=== PATIENT | female | born 1935 | race Caucasian/White ===

== ENCOUNTER 2017-04-05 15:20 | Inpatient (IN) | payer OTHER, MEDICARE ==
--- NOTE | 2017-04-05 17:02 | PDOREHIP ---
Admission [facility] - Admission - 3 Day Assessment Period Admission Date/Day 1: 04/05/17 Day 2: 04/06/17 Day 3: 04/07/17 - Active Diagnoses Comorbidities and Co-existing Conditions at Admission: 21959. None of the Above - Skin Conditions Unhealed Pressure Ulcer (1 or more/Stage 1 or >)-Admission: 0. No
[2017-04-05] MEDS ORDERED: HYDROCODONE/APAP 10/325 TAB PO PRN (17:30)
[2017-04-05] MEDS ORDERED: BISACODYL 10 MG SUPP PR PRN (17:35)
[2017-04-05] MEDS: HYDROCODONE/APAP 10/325 TAB PO PRN (19:08)
--- NOTE | 2017-04-05 19:18 | GHP ---
[f rep st] HISTORY AND PHYSICAL POST ADMISSION PHYSICIAN EVALUATION AND REHABILITATION TREATMENT PLAN DATE OF ADMISSION: 04/05/2017 DATE OF EVALUATION: 04/05/2017. TIME OF EVALUATION: 1645. REFERRING FACILITY: [facility]. REFERRING PHYSICIAN: Dr. Rossi IMPAIRMENT GROUP: 1.1. DATE OF ONSET: 04/03/2017. CONSULTING PHYSICIAN: She was seen in consultation by neurologist, Dr. Lacy. REHABILITATION DIAGNOSIS: Right cerebellar stroke. ETIOLOGIC DIAGNOSIS: Left body involvement (right brain). HISTORY OF PRESENT ILLNESS: This patient was admitted to [facility] on 04/02/2017 after a 5-day course of headache and dizziness. The headache was on her right side. She had a feeling of the room being motion, though not specifically spinning, and she would fall towards the right. She reported that she needed assistance from her son, even when using a walker for mobility. Evaluation in the hospital included a head CT which initially appeared to show a right cerebellar mass. A followup MRI showed a right cerebellar stroke. Echocardiogram was performed which did not show any embolic source. She had grade 2 diastolic dysfunction. She has had intolerance to HMG- CoA reductase inhibitors including myalgia and liver function abnormalities, and so she was begun on ezetimibe. Laboratory studies showed dyslipidemia with a total cholesterol of 285, and an LDL cholesterol of 204. She participated in rehabilitative therapies and was considered ready for transfer to inpatient rehabilitation. OTHER STUDIES AND LABS IN THE HOSPITAL: Basic metabolic panel was overall within normal limits. She had a minor increase in CO2 at 34 on labs drawn this morning and a minor decrease in sodium at 135. CBC on 04/02/2017 showed a normal white blood cell count, normal platelet count, and normal hemoglobin and hematocrit. Liver function tests on 04/02/2017 were within normal limits. Head CT showed age-appropriate atrophic and small-vessel ischemic change. CT angiogram showed no carotid or vertebral artery stenosis or dissection and no acute intracranial arterial thrombosis or significant stenosis. PRECAUTIONS: She is a fall risk. ACTIVE COMORBIDITIES: She has the tier 3 comorbidity of morbid obesity. PAST MEDICAL HISTORY: 1. Arthritis. 2. Cataracts. 3. Chest pain. 4. Chronic fatigue. 5. Chronic pain. 6. Diverticulitis. 7. Fibromyalgia. 8. Gastroesophageal reflux disease. 9. GI bleed. 10. Head injury. 11. Dyslipidemia. 12. Hypertension. 13. Hypothyroidism. 14. Irritable bowel syndrome. 15. Kidney stones. 16. Macular degeneration. 17. Carotid stenosis. 18. Peripheral arterial disease. 19. Palpitations. 20. Pneumonia. 21. Rheumatoid arthritis. 22. Seasonal allergies. 23. Sinusitis. 24. Sleep apnea. PAST SURGICAL HISTORY: She has had an appendectomy, bilateral oophorectomy, total abdominal hysterectomy, cataract extraction, cervical fusion, colectomy, laminectomy with disc removal, and tubal ligation. PRE-HOSPITAL MEDICATIONS: 1. Amoxicillin 875 mg b.i.d. 2. Cholecalciferol 3000 units daily. 3. Citalopram 40 mg q.h.s. 4. Clonazepam 1 mg q.h.s. 5. Gabapentin 600 mg q.h.s. 6. Hydralazine 50 mg q.h.s. 7. Hydrocodone/acetaminophen 10/325 q.4 hours p.r.n. 8. Culturelle probiotic daily. 9. Levothyroxine 75 mcg daily. 10. Lisinopril 40 mg daily. 11. Nebivolol 20 mg daily. 12. Oxycodone continuous release 20 mg every 12 hours. 13. Pantoprazole 40 mg daily. ADMIT MEDICATIONS: 1. Aspirin 81 mg p.o. daily. 2. Cholecalciferol 3000 units p.o. b.i.d. 3. Citalopram 40 mg p.o. q.h.s. 4. Clonazepam 1 mg p.o. q.h.s. 5. Ezetimibe 10 mg p.o. daily. 6. Gabapentin 600 mg p.o. q.h.s. 7. Culturelle probiotic daily. 8. Hydralazine 50 mg q.h.s. 9. Hydrocodone/acetaminophen 10/325 one p.o. q.4 hours p.r.n. 10. Levothyroxine 75 mcg p.o. daily. 11. Lisinopril 40 mg p.o. daily. 12. Meclizine 50 mg p.o. q.6 hours p.r.n. 13. Nebivolol 20 mg p.o. daily. 14. Lincoln-3 fatty acids one p.o. daily. 15. Oxycodone continuous release 20 mg q.12 hours. 16. Pantoprazole 40 mg p.o. daily. ALLERGIES: Listed to morphine, amlodipine, and simvastatin. Amlodipine caused swelling of the extremities. Simvastatin caused muscle pains. FAMILY HISTORY: Noncontributory. PSYCHOSOCIAL HISTORY: She is a . She moved to [place] from [place] to be nearer to her son in 2012. She is a nonsmoker and nondrinker. 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 REVIEW OF SYSTEMS: She reports a sensation of dizziness which is more like the room moving around her but not spinning, and she feels unstable when she stands up. She has some nausea, but she has not vomited. She notices some weakness on the right side of her body. She is using oxygen and reports that she uses oxygen daytime and nighttime at home as well. She has a headache, it is in the right frontal, temporal, and parietal regions. It is not pounding. She denies vision changes, numbness or tingling of the extremities, difficulty swallowing, cough, dyspnea, chest pain, palpitations, vomiting, constipation, diarrhea, dysuria, urinary frequency, skin rash or skin breakdown. She reports that she has pain in her knees and in her ankles. Otherwise, a 10-point review of systems is negative. PHYSICAL EXAMINATION: VITAL SIGNS: Vitals are not yet available in the chart. GENERAL: This is a well-nourished, well-developed, obese woman who appears her chronologic age, lying in bed, cooperative, and in no acute distress. HEENT : Extraocular movements are intact. Pupils are equal, round, and reactive to light and accommodation. Mucous membranes are moist. Dentition is in good condition. She has a crowded airway; Mallampati class 4. NECK: Supple. HEART : There is regular rate and rhythm with no murmurs, rubs, or gallops. LUNGS: Clear to auscultation bilaterally. ABDOMEN: Soft, nontender, nondistended with normoactive bowel sounds and no hepatosplenomegaly. EXTREMITIES: There is no cyanosis, clubbing, or edema. Radial and dorsalis pedis pulses are 2+ bilaterally. NEUROLOGIC: She is alert. She is disoriented to the date. She is reoriented by the examiner, and after several minutes of distraction, she maintains orientation. She follows multistep commands. Cranial nerves 2 through 12 are grossly intact. She has 4/5 strength in the right triceps. Otherwise, strength is 5/5 overall in all 4 extremities. She is able to arise to seated from supine with contact guard to minimal assist of 1. Sensation is intact to light touch. Deep tendon reflexes are 2+ bilaterally at the biceps, patellar, and Achilles tendons. Plantar reflexes upgoing on the left and downgoing on the right. Cerebellar: She has past-pointing on the right upper extremity, but not on the left. She is able to do the heel on the mcmullen maneuver equally on both sides. SKIN: There are no decubitus ulcers noted and no rash. CURRENT LEVEL OF FUNCTION: Per the pre-admission screen: Regarding diet, feeding, and swallowing, she was on a regular diet with thin liquids. Grooming was accomplished with assistance standing at the sink. For bathing, she needed assistance. For dressing, she needed assistance. For toileting, she needed assistance. Bed mobility was accomplished with standby assist. Transfers were done with contact guard assist using a front-wheeled walker. Balance required contact guard assist. Endurance was poor. She was able to ambulate 50 feet with a 4-wheeled walker and contact guard assist with a gait belt. Regarding cognition, she was noted to have decreased awareness of deficits, decreased problem solving, and able to follow one-step commands. She was noted to be oriented x4. IMPRESSION: The patient is an obese 81-year-old woman with multiple medical problems including stroke risk factors of dyslipidemia and hypertension who suffered a cerebrovascular accident on 04/02/2017 involving the right cerebellum and has had significant balance impairment as a result. Hospital evaluation did not uncover an embolic source for the stroke. She was not taking aspirin when she had the stroke. She was begun on aspirin. She has significant dyslipidemia with a history of intolerance to HMG-CoA reductase inhibitors and so was begun on ezetimibe. Her LDL was 195 and her goal LDL is less than 70. She is appropriate for inpatient rehabilitation with significant mobility deficits, reduced endurance, and possible cognitive involvement. She will have physical and occupational therapy to optimize her mobility and activities of daily living and speech and language pathology to assess regarding cognition. She will benefit from nursing care due to her fall risk, to maintain skin integrity, for bowel and bladder function, and for medication administration. She will benefit from the care of a physician regarding dyslipidemia, deep venous thrombosis risk, infectious risk, and multiple comorbidities including hypertension, hypothyroidism, chronic pain, and chronic hypoxemia. Her goal is to complete rehabilitation and then return home with her family. For a safe discharge, it is expected that she will achieve supervision to modified independence with mobility, activities of daily living, and cognition. She will need to be able to do medication management and there will be medication education as well as neurologic education for the patient and her family. She will have therapy with Physical Therapy, Occupational Therapy, and Speech and Language Pathology for 60 minutes per day for each discipline on 5-7 days of the week. Her expected duration of stay is 12-14 days. It is anticipated that upon discharge she will continue to benefit from home health services including speech and language pathology, occupational therapy, and physical therapy as well as a stroke support group. ASSESSMENT AND PLAN: 1. 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 Hospitalized 04/02/17 with symptoms beginning several days earlier. She has mild right-sided weakness and is showing some right-sided cerebellar signs. She will have physical and occupational therapy to optimize her mobility and activities of daily living. 2. Possible cognitive impairment. To be evaluated by Speech and Language Pathology. 3. Secondary prevention of cerebrovascular accident. Continue aspirin continue blood pressure control. Ezetimibe has been started for dyslipidemia. It is likely to reduce her LDL cholesterol by no more than 17%. She will likely need an HMG-CoA reductase inhibitor for optimal prevention. She has had intolerances to this class of medication; however, in conversation with her Cardiology [facility], it was noted that she was most recently prescribed rosuvastatin. This will be discussed with the patient further, and rosuvastatin may be started at a low dose with gradual titration. 4. Hypertension. Continue medications as ordered out of the hospital. 5. Chronic pain syndrome. Continue oxycodone continuous release as well as hydrocodone/acetaminophen combination. 6. Hypothyroidism. Continue levothyroxine. 7. Congestive heart failure, diastolic, grade 2. Continue nebivolol and lisinopril. Continue oxygen. 8. Likely obstructive sleep apnea. Listed in her med medical history, however , she has not been on specific treatment for this other than oxygen at night. Advise a sleep study after discharge from inpatient rehabilitation and continue oxygen. 9. Anxiety versus depression. Will continue citalopram and clonazepam. Consider discussion with the patient regarding effects of clonazepam on balance. 10. Vitamin D deficiency. Continue cholecalciferol. 11. Gastroesophageal reflux disorder. Continue pantoprazole, especially with the recent re-initiation of aspirin. 12. Resuscitation. Wishes were verified with the patient. She had a Do Not Resuscitate order while she was at [address] and she confirmed that this is her preference. FOLLOW UP: It is expected that upon discharge, she should follow up with primary care, with Cardiology Clinic at the [facility] in [place], and with [facility], Dr. Lacy, or his colleagues in their outpatient clinic. /[id number]/MODL MTDD
[2017-04-05] MEDS: GABAPENTIN 300 MG CAP PO SCH (20:18)
[2017-04-05] MEDS: clonazePAM 1 MG TAB PO SCH (20:19)
[2017-04-05] MEDS: CITALOPRAM 20 MG TAB PO SCH (20:19)
[2017-04-05] MEDS: CHOLECALCIFEROL VIT D3 1,000 UNITS TAB PO SCH (20:19)
[2017-04-06] MEDS: LEVOTHYROXINE 75 MCG TAB PO SCH (06:32)
[2017-04-06] MEDS: EZETIMIBE 10 MG TAB PO SCH (08:46)
[2017-04-06] MEDS: CHOLECALCIFEROL VIT D3 1,000 UNITS TAB PO SCH ×2 (08:46→20:22)
[2017-04-06] MEDS: HYDROCODONE/APAP 10/325 TAB PO PRN ×3 (08:47→14:24)
[2017-04-06] MEDS: OMEGA-3 FATTY ACIDS 1,000 MG CAP PO SCH (08:48)
[2017-04-06] MEDS: LISINOPRIL 40 MG TAB PO SCH (08:48)
[2017-04-06] MEDS: ASPIRIN 81 MG CHEWABLE TAB PO SCH (08:48)
[2017-04-06] MEDS: PANTOPRAZOLE SODIUM 40 MG TAB PO SCH (08:48)
[2017-04-06] MEDS: MECLIZINE HCL 25 MG TAB PO PRN (08:48)
[2017-04-06] MEDS: SENNOSIDES 1 TAB PO PRN (08:49)
[2017-04-06] MEDS ORDERED: Herbals/Supplements -Info Only PO SCH (09:00)
--- NOTE | 2017-04-06 09:47 | SOAPPROG ---
SOAP Progress Note Assessment/Plan: Assessment: * Right cerebellar cerebrovascular accident with balance impairment. Hospitalized 04/02/17 with symptoms beginning several days earlier. She has mild right-sided weakness and is showing some right-sided cerebellar signs. She will have physical and occupational therapy to optimize her mobility and activities of daily living. * Possible cognitive impairment. To be evaluated by Speech and Language Pathology. * Secondary prevention of cerebrovascular accident. Continue aspirin, continue blood pressure control. Ezetimibe has been started for dyslipidemia. It is likely to reduce her LDL cholesterol by no more than 17%. Initiate rosuvastatin 5 mg QD beginning 04/06/17. LFTs were normal in the hospital; recheck 04/09/17. * Hypertension. Inadequate control with lisinopril, nebivolol and hydralazine. Unclear why hydralazine is dosed only QHS; will not change for now. Initiate chlorthalidone 04/06/17 as it is 1st line for CVA prevention. Check renal fn . * Chronic pain syndrome. Continue oxycodone continuous release as well as hydrocodone/acetaminophen combination. Gabapentin is to help sleep and for fibromyalgia. 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 * Hypothyroidism. Continue levothyroxine. * Congestive heart failure, diastolic, grade 2. Continue nebivolol and lisinopril. Continue oxygen. * Likely obstructive sleep apnea. Listed in her med medical history, however, she has not been on specific treatment for this other than oxygen at night. Advise a sleep study after discharge from inpatient rehabilitation and continue oxygen. * Anxiety versus depression. Will continue citalopram and clonazepam. Consider discussion with the patient regarding effects of clonazepam on balance. * Vitamin D deficiency. Continue cholecalciferol. * Gastroesophageal reflux disorder. Continue pantoprazole, especially with the recent re-initiation of aspirin. FOLLOW UP: It is expected that upon discharge, she should follow up with primary care, with Cardiology Clinic at the [facility] in [place], and with [facility], Dr. Lacy, or his colleagues in their outpatient clinic. 04/06/17 10:08 Subjective: No complaints this morning. Slept well, good appetite for breakfast. Has bilateral lower extremity pain which was improved with her hydrocodone combination medication this morning as well as long-acting oxycodone. Again denies any urinary issues. Discussed prior use of statin medications. She reports that she was last prescribed rosuvastatin 3 times a week and that she thinks she may have had liver abnormalities with the rosuvastatin. Discussed blood pressure medications she reports that Dr. 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 She reports that she has never been on a diuretic. Objective: Vital Signs Temp Pulse Resp BP Pulse Ox 36.8 C 73 18 188/77 H 98 04/06/17 06:41 04/06/17 06:41 04/06/17 06:41 04/06/17 08:48 04/06/17 06:41 04/05/17 04/06/17 04/07/17 05:59 05:59 05:59 Intake Total 650 440 Output Total 400 Balance 250 440 Physical Exam - Physical Exam General Appearance: WD/WN, alert, no apparent distress, obese Respiratory: normal breath sounds, No crackles, No rhonchi, No wheezing Cardiac/Chest: regular rate, rhythm, bradycardia, No edema, No diastolic murmur , No systolic murmur Skin: normal color, warm/dry Neuro/Psych: alert, normal mood/affect ICD10 Worksheet Patient Problems: Problems Problem Status Onset Cerebellar stroke Acute
[2017-04-06] MEDS: ROSUVASTATIN CALCIUM 10 MG TAB PO SCH (11:32)
[2017-04-06] MEDS: CHLORTHALIDONE 25 MG TAB PO SCH (11:33)
[2017-04-06] MEDS: NEBIVOLOL HCL 5 MG TAB PO SCH (14:24)
[2017-04-06] MEDS ORDERED: ACETAMINOPHEN 650 MG/20.3 ML UDCUP PO PRN (14:49)
[2017-04-06] MEDS: ACET/CAFFEINE/BUTA FIORICET 1 EACH TAB PO PRN (16:45)
[2017-04-06] MEDS: ENOXAPARIN 40 MG/0.4 ML SYR SC SCH (16:46)
[2017-04-06] MEDS: oxyCODONE IR 5 MG TAB PO PRN ×2 (17:19→21:27)
[2017-04-06] MEDS: GABAPENTIN 300 MG CAP PO SCH (20:21)
[2017-04-06] MEDS: CITALOPRAM 20 MG TAB PO SCH (20:22)
[2017-04-06] MEDS: clonazePAM 1 MG TAB PO SCH (20:22)
[2017-04-07] MEDS: LEVOTHYROXINE 75 MCG TAB PO SCH (05:33)
[2017-04-07] MEDS: ASPIRIN 81 MG CHEWABLE TAB PO SCH (08:24)
[2017-04-07] MEDS: CHLORTHALIDONE 25 MG TAB PO SCH (08:24)
[2017-04-07] MEDS: EZETIMIBE 10 MG TAB PO SCH (08:27)
[2017-04-07] MEDS: CHOLECALCIFEROL VIT D3 1,000 UNITS TAB PO SCH ×2 (08:27→20:11)
[2017-04-07] MEDS: LISINOPRIL 40 MG TAB PO SCH (08:27)
[2017-04-07] MEDS: ENOXAPARIN 40 MG/0.4 ML SYR SC SCH (08:27)
[2017-04-07] MEDS: ROSUVASTATIN CALCIUM 10 MG TAB PO SCH (08:28)
[2017-04-07] MEDS: PANTOPRAZOLE SODIUM 40 MG TAB PO SCH (08:28)
[2017-04-07] MEDS: OMEGA-3 FATTY ACIDS 1,000 MG CAP PO SCH (08:28)
--- NOTE | 2017-04-07 11:54 | SOAPPROG ---
SOAP Progress Note Assessment/Plan: Assessment: * Right cerebellar cerebrovascular accident with balance impairment. Hospitalized 04/02/17 with symptoms beginning several days earlier. She has mild right-sided weakness and is showing some right-sided cerebellar signs. She will have physical and occupational therapy to optimize her mobility and activities of daily living. * Cognitive impairment. Issues with word retrieval, speed of processing, , new learning. Continue Speech and Language Pathology. * Secondary prevention of cerebrovascular accident. Continue aspirin, continue blood pressure control. Ezetimibe has been started for dyslipidemia. It is likely to reduce her LDL cholesterol by no more than 17%. Initiated rosuvastatin 5 mg QD beginning 04/06/17. LFTs were normal in the hospital; recheck 04/09/17. * Hypertension. Inadequate control with lisinopril, nebivolol and hydralazine. Unclear why hydralazine is dosed only QHS; will not change for now. Initiate chlorthalidone 04/06/17 as it is 1st line for CVA prevention. Check renal fn . * Chronic pain syndrome. Continue oxycodone continuous release. Separate acetaminophen from opiate starting 04/06/2017, with acetaminophen 650 mg q.4 hours p.r.n. and oxycodone 5-10 mg q.3 hours p.r.n. added p.r.n. Fioricet for headache. Pain improved last night and this morning 04/07/2017. Gabapentin is to help sleep and for fibromyalgia. 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 * Hypothyroidism. Continue levothyroxine. * Congestive heart failure, diastolic, grade 2. Continue nebivolol and lisinopril. Continue oxygen. * Likely obstructive sleep apnea. Listed in her med medical history, however, she has not been on specific treatment for this other than oxygen at night. Advise a sleep study after discharge from inpatient rehabilitation and continue oxygen. * Anxiety versus depression. Will continue citalopram and clonazepam. Consider discussion with the patient regarding effects of clonazepam on balance. * Vitamin D deficiency. Continue cholecalciferol. * Gastroesophageal reflux disorder. Continue pantoprazole, especially with the recent re-initiation of aspirin. FOLLOW UP: After discharge, she should follow up with primary care, with Cardiology Clinic at the [facility] in [place], and with [facility], Dr. Lacy, or his colleagues in their outpatient clinic. 04/07/17 11:50 Subjective: No complaints. Headache is improved. Slept well, was up x1 overnight to urinate. No fevers, chills, cough, dyspnea, dysuria. Objective: Vital Signs Temp Pulse Resp BP Pulse Ox 37.4 C 50 L 18 156/65 H 96 04/07/17 08:20 04/07/17 08:20 04/07/17 08:20 04/07/17 08:27 04/07/17 08:20 04/06/17 04/07/17 04/08/17 05:59 05:59 05:59 Intake Total 650 1460 350 Output Total 400 1050 Balance 250 410 350 Physical Exam - Physical Exam General Appearance: WD/WN, alert, no apparent distress, obese Respiratory: normal breath sounds, No crackles, No rhonchi, No wheezing Cardiac/Chest: regular rate, rhythm, edema (trace B LE) Skin: normal color, warm/dry Neuro/Psych: alert, normal mood/affect, oriented x 3, abnormal gait (Ambulates FWW, CGA per PT. Ataxia RLE with LOB.) ICD10 Worksheet Patient Problems: Problems Problem Status Onset Cerebellar stroke Acute
[2017-04-07] MEDS: oxyCODONE IR 5 MG TAB PO PRN ×2 (13:15→20:10)
[2017-04-07] MEDS: NEBIVOLOL HCL 5 MG TAB PO SCH (13:16)
[2017-04-07] MEDS: POLYETHYLENE GLYCOL 3350 17 GM PKT PO PRN (17:14)
[2017-04-07] MEDS: SENNOSIDES 1 TAB PO PRN (17:14)
[2017-04-07] MEDS: ACETAMINOPHEN 325 MG TAB PO PRN (20:10)
[2017-04-07] MEDS: GABAPENTIN 300 MG CAP PO SCH (20:11)
[2017-04-07] MEDS: CITALOPRAM 20 MG TAB PO SCH (20:12)
[2017-04-07] MEDS: clonazePAM 1 MG TAB PO SCH (20:12)
[2017-04-08] MEDS: oxyCODONE IR 5 MG TAB PO PRN ×5 (04:38→22:37)
[2017-04-08] MEDS: LEVOTHYROXINE 75 MCG TAB PO SCH (05:34)
[2017-04-08] MEDS: ROSUVASTATIN CALCIUM 10 MG TAB PO SCH (08:26)
[2017-04-08] MEDS: CHLORTHALIDONE 25 MG TAB PO SCH (08:28)
[2017-04-08] MEDS: LISINOPRIL 40 MG TAB PO SCH (08:31)
[2017-04-08] MEDS: PANTOPRAZOLE SODIUM 40 MG TAB PO SCH (08:32)
[2017-04-08] MEDS: ASPIRIN 81 MG CHEWABLE TAB PO SCH (08:32)
[2017-04-08] MEDS: EZETIMIBE 10 MG TAB PO SCH (08:32)
[2017-04-08] MEDS: OMEGA-3 FATTY ACIDS 1,000 MG CAP PO SCH (08:32)
[2017-04-08] MEDS: CHOLECALCIFEROL VIT D3 1,000 UNITS TAB PO SCH ×2 (08:32→20:24)
[2017-04-08] MEDS: POLYETHYLENE GLYCOL 3350 17 GM PKT PO PRN ×2 (08:36→20:41)
[2017-04-08] MEDS: SENNOSIDES 1 TAB PO PRN (08:37)
[2017-04-08] MEDS: ENOXAPARIN 40 MG/0.4 ML SYR SC SCH (08:40)
--- NOTE | 2017-04-08 11:05 | SOAPPROG ---
SOAP Progress Note Assessment/Plan: Assessment: * Right cerebellar cerebrovascular accident with balance impairment. Hospitalized 04/02/17 with symptoms beginning several days earlier. She has mild right-sided weakness and is showing some right-sided cerebellar signs. She has ambulated up to 250 feet. She will have physical and occupational therapy to optimize her mobility and activities of daily living. * Cognitive impairment. Issues with word retrieval, speed of processing, , new learning. Continue Speech and Language Pathology. * Secondary prevention of cerebrovascular accident. Continue aspirin, continue blood pressure control. Ezetimibe has been started for dyslipidemia. It is likely to reduce her LDL cholesterol by no more than 17%. Initiated rosuvastatin 5 mg QD beginning 04/06/17. LFTs were normal in the hospital; recheck 04/09/17. * Hypertension. Inadequate control with lisinopril, nebivolol and hydralazine. Unclear why hydralazine is dosed only QHS; will not change for now. Initiate chlorthalidone 04/06/17 as it is 1st line for CVA prevention. Check renal fn . Check orthostatic blood pressure and pulse * Chronic pain syndrome. Continue oxycodone continuous release. Separate acetaminophen from opiate starting 04/06/2017, with acetaminophen 650 mg q.4 hours p.r.n. and oxycodone 5-10 mg q.3 hours p.r.n. added p.r.n. Fioricet for headache. Pain improved last night and this morning 04/07/2017. Gabapentin is to help sleep and for fibromyalgia. 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 * Hypothyroidism. Continue levothyroxine. * Congestive heart failure, diastolic, grade 2. Continue nebivolol and lisinopril. Continue oxygen. Has reduced oxygen requirement but lower extremity edema is noted. Initiate daily weights starting 04/08/2017. * Likely obstructive sleep apnea. Listed in her med medical history, however, she has not been on specific treatment for this other than oxygen at night. Advise a sleep study after discharge from inpatient rehabilitation and continue oxygen. * Anxiety versus depression. Will continue citalopram and clonazepam. Consider discussion with the patient regarding effects of clonazepam on balance. * Vitamin D deficiency. Continue cholecalciferol. * Gastroesophageal reflux disorder. Continue pantoprazole, especially with the recent re-initiation of aspirin. FOLLOW UP: After discharge, she should follow up with primary care, with Cardiology Clinic at the [facility] in [place], and with [facility], Dr. Lacy, or his colleagues in their outpatient clinic. 04/08/17 11:01 Subjective: No complaints this morning. She notes that she is on 2 L of oxygen were as at home she was usually on 3 L. slept well last night on till about 4 in the morning, when she awoke due to leg pain. She thinks that the sequential compression devices may have been causing pain. They were removed she was treated oxycodone and went back to sleep. No fevers, chills, cough, dyspnea, headache. Objective: Vital Signs Temp Pulse Resp BP Pulse Ox 36.4 C 66 18 155/86 H 96 04/08/17 05:41 04/08/17 05:41 04/08/17 05:41 04/08/17 08:31 04/08/17 05:41 04/07/17 04/08/17 04/09/17 05:59 05:59 05:59 Intake Total 1460 1440 400 Output Total 1050 1125 Balance 410 315 400 Physical Exam - Physical Exam General Appearance: WD/WN, alert, no apparent distress, obese Respiratory: normal breath sounds, No crackles, No rhonchi, No wheezing Cardiac/Chest: regular rate, rhythm, edema (1+ B LE), No JVD Skin: normal color, warm/dry Neuro/Psych: alert, normal mood/affect, oriented x 3 ICD10 Worksheet Patient Problems: Problems Problem Status Onset Cerebellar stroke Acute
[2017-04-08] MEDS: NEBIVOLOL HCL 5 MG TAB PO SCH (15:02)
[2017-04-08] MEDS ORDERED: SENNOSIDES 1 TAB PO PRN (15:17)
[2017-04-08] MEDS ORDERED: SENNOSIDES 1 TAB PO SCH (15:45)
[2017-04-08] MEDS: clonazePAM 1 MG TAB PO SCH (20:24)
[2017-04-08] MEDS: SENNOSIDES 1 TAB PO SCH (20:24)
[2017-04-08] MEDS: GABAPENTIN 300 MG CAP PO SCH (20:24)
[2017-04-08] MEDS: CITALOPRAM 20 MG TAB PO SCH (20:24)
[2017-04-08] MEDS: ACETAMINOPHEN 325 MG TAB PO PRN (22:03)
[2017-04-09] MEDS: LEVOTHYROXINE 75 MCG TAB PO SCH (05:35)
[2017-04-09] MEDS: ENOXAPARIN 40 MG/0.4 ML SYR SC SCH (07:57)
[2017-04-09] MEDS: ASPIRIN 81 MG CHEWABLE TAB PO SCH (08:07)
[2017-04-09] MEDS: ROSUVASTATIN CALCIUM 10 MG TAB PO SCH (08:07)
[2017-04-09] MEDS: SENNOSIDES 1 TAB PO SCH (08:07)
[2017-04-09] MEDS: LISINOPRIL 40 MG TAB PO SCH (08:08)
[2017-04-09] MEDS: PANTOPRAZOLE SODIUM 40 MG TAB PO SCH (08:08)
[2017-04-09] MEDS: OMEGA-3 FATTY ACIDS 1,000 MG CAP PO SCH (08:09)
[2017-04-09] MEDS: CHLORTHALIDONE 25 MG TAB PO SCH (08:09)
[2017-04-09] MEDS: CHOLECALCIFEROL VIT D3 1,000 UNITS TAB PO SCH ×2 (08:10→20:05)
[2017-04-09] MEDS: EZETIMIBE 10 MG TAB PO SCH (08:10)
[2017-04-09] MEDS: POLYETHYLENE GLYCOL 3350 17 GM PKT PO PRN (08:10)
[2017-04-09] MEDS ORDERED: SENNOSIDES 1 TAB PO PRN (09:40)
[2017-04-09 09:57] LABS: SPECIMEN HEMOLYSIS 155
--- NOTE | 2017-04-09 10:25 | SOAPPROG ---
SOAP Progress Note Assessment/Plan: Assessment: 81 yo F Hospitalized 04/02/17 for R cerebellar CVA with symptoms beginning several days earlier. She has mild right-sided weakness and is showing some right-sided cerebellar signs. 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 Initial FIM 85. Walked 150 feet with front wheeled walker and standby assist/contact guard assist. Climbed and descended 3 stairs with 1 rail. Require setup and supervision for upper body and lower body dressing. She bathed seated with minimal assistance she was noted to have slowed visual processing. Continue physical and occupational therapy to optimize her mobility and activities of daily living. * Cognitive impairment. Issues with word retrieval, speed of processing,, new learning. Continue Speech and Language Pathology. * Secondary prevention of cerebrovascular accident. Continue aspirin, continue blood pressure control. Ezetimibe has been started for dyslipidemia. It is likely to reduce her LDL cholesterol by no more than 17%. Initiated rosuvastatin 5 mg QD beginning 04/06/17. LFTs were normal in the hospital; mild elevation 04/09/17; recheck 04/11/17. * Hypertension. Inadequate control with lisinopril, nebivolol and hydralazine. Initiated chlorthalidone 04/06/17 as it is 1st line for CVA prevention; d/c starting 04/10/17 due to hyponatremia with Na 130 on labs 04/09/17. Was mildly orthostatic 04/08/17; hypotensive after eating this morning 04/09/17. Reduce nebivolol to 10 mg and hold for BP < 130/70 or HR < 50. Will change hydralazine to 50 mg TID starting 04/10/17. Recheck BMP 04/11/17. * Chronic pain syndrome. Continue oxycodone continuous release. Separate acetaminophen from opiate starting 04/06/2017, with acetaminophen 650 mg q.4 hours p.r.n. and oxycodone 5-10 mg q.3 hours p.r.n. added p.r.n. Fioricet for headache. Pain improved last night and this morning 04/07/2017. Gabapentin is to help sleep and for fibromyalgia. 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 * Constipation. She reports better results at home with bisacodyl oral. We will change senna to p.r.n. and initiate physical oral 5 mg q.day. She discussed history of a bowel obstruction and concern that this may be developing now. Encouraged use of enema or suppository today 04/09/17; she reports that she will accept a suppository today. Chronic/stable conditions: * Hypothyroidism. Continue levothyroxine. * Congestive heart failure, diastolic, grade 2. Continue nebivolol and lisinopril. Continue oxygen. Has reduced oxygen requirement but lower extremity edema is noted. Initiate daily weights starting 04/09/2017. * Likely obstructive sleep apnea. Listed in her med medical history, however, she has not been on specific treatment for this other than oxygen at night. Advise a sleep study after discharge from inpatient rehabilitation and continue oxygen. * Anxiety versus depression. Will continue citalopram and clonazepam. Consider discussion with the patient regarding effects of clonazepam on balance. * Vitamin D deficiency. Continue cholecalciferol. * Gastroesophageal reflux disorder. Continue pantoprazole, especially with the recent re-initiation of aspirin. Attendant staffing, 15 minutes. Discussed with case management, nursing, PT, OT , [employer]. Lives in basement level room in son's home with stair glide however has several stairs to enter the house. 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 Tentative discharge goal of 04/19/2017 to son' s home. FOLLOW UP: After discharge, she should follow up with primary care, with [facility]iology Clinic at the [facility] in [place], and with [facility], Dr. Lacy, or his colleagues in their outpatient clinic. 04/09/17 12:19 Subjective: [place] lightheaded this morning during breakfast. Blood pressure was checked and was 104/44. She is currently in bed and feeling better. She denies fevers, chills, cough, dyspnea. Pain is adequately controlled. Objective: Vital Signs Temp Pulse Resp BP Pulse Ox 36.8 C 54 L 16 104/44 L 92 04/09/17 06:09 04/09/17 08:43 04/09/17 08:43 04/09/17 08:43 04/09/17 08:43 Laboratory Results 04/09/17 06:00 04/08/17 04/09/17 04/10/17 05:59 05:59 05:59 Intake Total 1440 1240 Output Total 1125 Balance 315 1240 - Time Spent With Patient Time Spent With Patient: Greater than 35 minutes 4 times a day, including more than 50% of time in coordination of care during staffing meeting, and counseling patient. Physical Exam - Physical Exam General Appearance: WD/WN, alert, no apparent distress, obese Respiratory: normal breath sounds, No crackles, No rhonchi, No wheezing Cardiac/Chest: regular rate, rhythm, edema (1+ B LE), systolic murmur (1/6 holosystolic LSB) Skin: normal color, warm/dry Neuro/Psych: alert, normal mood/affect, oriented x 3 ICD10 Worksheet Patient Problems: Problems Problem Status Onset Cerebellar stroke Acute
[2017-04-09 12:18] LABS: ALANINE AMINOTRANSFERASE 61 IU/L (9-52); ALBUMIN 4.2 g/dL (3.5-5.0); ALKALINE PHOSPHATASE 68 IU/L (38-126); ANION GAP 11 mEq/L (8-16); ASPARTATE AMINOTRANSFERASE 71 IU/L (14-46); BILIRUBIN,TOTAL 0.6 mg/dL (0.1-1.4); CALCIUM 9.6 mg/dL (8.5-10.4); CARBON DIOXIDE 29 mEq/l (22-31); CHLORIDE 90 mEq/L (97-110); CREATININE 0.9 mg/dL (0.6-1.0); GLOMERULAR FILTRATION RATE > 60; GLUCOSE 109 mg/dL (70-100); POTASSIUM 4.3 mEq/L (3.5-5.2); SODIUM 130 mEq/L (134-144); TOTAL PROTEIN 7.1 g/dL (6.3-8.2)
[2017-04-09] MEDS: oxyCODONE IR 5 MG TAB PO PRN ×2 (14:17→19:53)
[2017-04-09] MEDS: NEBIVOLOL HCL 5 MG TAB PO SCH (14:18)
[2017-04-09] MEDS: clonazePAM 1 MG TAB PO SCH (20:05)
[2017-04-09] MEDS: CITALOPRAM 20 MG TAB PO SCH (20:05)
[2017-04-09] MEDS: GABAPENTIN 300 MG CAP PO SCH (20:05)
[2017-04-10] MEDS: LEVOTHYROXINE 75 MCG TAB PO SCH (05:42)
[2017-04-10] MEDS: oxyCODONE IR 5 MG TAB PO PRN ×4 (06:44→20:57)
--- NOTE | 2017-04-10 08:21 | SOAPPROG ---
SOAP Progress Note Assessment/Plan: 81 yo F Hospitalized 04/02/17 for R cerebellar CVA with symptoms beginning several days earlier. She has mild right-sided weakness and is showing some right-sided cerebellar signs. Today's update-changing bowel regimen to match patient's home regimen, with some additional assistance for constipation the hospital. Slightly low sodium at 1:30 a.m. yesterday, slightly hypertensive today at 161/71 with a pulse of 55. Fluid status seems normal. Rechecking sodium in the morning. Slightly elevated liver function tests on the last set of labs on 04/09, rechecking on . Weight was increased from her previous recording, however she notes that she was fully dressed during the 2nd one. This is the 1st time meeting the patient, all medical issues are new to this provider. Plan to discuss any further changes to her blood pressure medications with Dr. Stephenson. 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 Initial FIM 85. Walked 150 feet with front wheeled walker and standby assist/contact guard assist. Climbed and descended 3 stairs with 1 rail. Require setup and supervision for upper body and lower body dressing. She bathed seated with minimal assistance she was noted to have slowed visual processing. Continue physical and occupational therapy to optimize her mobility and activities of daily living. * Cognitive impairment. Issues with word retrieval, speed of processing, new learning. Continue Speech and Language Pathology. * Secondary prevention of cerebrovascular accident. Continue aspirin, continue blood pressure control. Ezetimibe has been started for dyslipidemia. It is likely to reduce her LDL cholesterol by no more than 17%. Initiated rosuvastatin 5 mg QD beginning 04/06/17. LFTs were normal in the hospital; mild elevation 04/09/17; recheck 04/11/17. * Hypertension. Inadequate control with lisinopril, nebivolol and hydralazine. Initiated chlorthalidone 04/06/17 as it is 1st line for CVA prevention; d/c starting 04/10/17 due to hyponatremia with Na 130 on labs 04/09/17. Was mildly orthostatic 04/08/17; hypotensive after eating this morning 04/09/17. Reduced nebivolol to 10 mg and hold for BP < 130/70 or HR < 50. Changed to hydralazine to 50 mg TID starting 04/10/17. Recheck BMP 04/11/17. * Chronic pain syndrome. Continue oxycodone continuous release. Separate acetaminophen from opiate starting 04/06/2017, with acetaminophen 650 mg q.4 hours p.r.n. and oxycodone 5-10 mg q.3 hours p.r.n. added p.r.n. Fioricet for headache. Gabapentin is to help sleep and for fibromyalgia. 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 * Constipation. She reports better results at home with bisacodyl oral. Changed senna to p.r.n. and initiate bisacodyl oral 5 mg q.day. She is requesting dulcolax p.r.n. Chronic/stable conditions: * Hypothyroidism. Continue levothyroxine. * Congestive heart failure, diastolic, grade 2. Continue nebivolol and lisinopril. Continue oxygen. Has reduced oxygen requirement but lower extremity edema is noted. Initiate daily weights starting 04/09/2017. * Likely obstructive sleep apnea. Listed in her med medical history, however, she has not been on specific treatment for this other than oxygen at night. Advise a sleep study after discharge from inpatient rehabilitation and continue oxygen. * Anxiety versus depression. Will continue citalopram and clonazepam. Consider discussion with the patient regarding effects of clonazepam on balance. * Vitamin D deficiency. Continue cholecalciferol. * Gastroesophageal reflux disorder. Continue pantoprazole, especially with the recent re-initiation of aspirin. Lives in basement level room in son's home with stair glide however has several stairs to enter the house. 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 Tentative discharge goal of 04/19/2017 to son's home. FOLLOW UP: After discharge, she should follow up with primary care, with [facility]iology Clinic at the [facility] in [place], and with [facility], Dr. Lacy, or his colleagues in their outpatient clinic. 04/10/17 08:16 04/10/17 08:23 Subjective: Chief complaint: Hypertension, loose stool Today patient is slightly hypertensive, 161/71, pulse of 55. She had a sodium of 130 at the last lab drawn on 04/09. She denies any new headache, shortness of breath, chest pain, or any new numbness tingling or weakness. She notes that she would take p.r.n. Dulcolax at home, requesting that medication here. Participating well in therapies, she has no other new concerns today. She also denies that she was asked to check her weight at home. Notes that at her last weight in on rehab, she was fully dressed with her shoes on. Objective: Vital Signs Temp Pulse Resp BP Pulse Ox 36.3 C 55 L 16 161/71 H 97 04/10/17 05:53 04/10/17 05:53 04/10/17 05:53 04/10/17 05:53 04/10/17 05:53 Laboratory Results 04/09/17 11:04 04/09/17 04/10/17 04/11/17 05:59 05:59 05:59 Intake Total 1240 540 Output Total 600 Balance 1240 -60 Physical Exam - Physical Exam General Appearance: WD/WN, alert, no apparent distress EENT: No scleral icterus (R), No scleral icterus (L) Respiratory: chest non-tender, lungs clear, normal breath sounds, No respiratory distress, No accessory muscle use, No rales, No rhonchi, No wheezing , No pleural rub, No retractions, No pain on movement Cardiac/Chest: normal peripheral pulses, regular rate, rhythm, No edema, No JVD , No diastolic murmur, No systolic murmur, No extra beats, No irregularly irregular Abdomen: non-tender, soft Skin: normal color, warm/dry, No cyanosis, No diaphoresis Neuro/Psych: alert, normal mood/affect, No abnormal cerebellar tests (Abnormal [id number] and rapid alternating movements on the right) ICD10 Worksheet Patient Problems: Problems Problem Status Onset Cerebellar stroke Acute
[2017-04-10] MEDS: ACET/CAFFEINE/BUTA FIORICET 1 EACH TAB PO PRN (08:50)
[2017-04-10] MEDS: ACETAMINOPHEN 325 MG TAB PO PRN ×2 (08:50→13:48)
[2017-04-10] MEDS: ASPIRIN 81 MG CHEWABLE TAB PO SCH (08:51)
[2017-04-10] MEDS: EZETIMIBE 10 MG TAB PO SCH (08:52)
[2017-04-10] MEDS: ENOXAPARIN 40 MG/0.4 ML SYR SC SCH (08:52)
[2017-04-10] MEDS: LISINOPRIL 40 MG TAB PO SCH (08:52)
[2017-04-10] MEDS: CHOLECALCIFEROL VIT D3 1,000 UNITS TAB PO SCH ×2 (08:52→20:57)
[2017-04-10] MEDS: PANTOPRAZOLE SODIUM 40 MG TAB PO SCH (08:53)
[2017-04-10] MEDS: OMEGA-3 FATTY ACIDS 1,000 MG CAP PO SCH (08:53)
[2017-04-10] MEDS: ROSUVASTATIN CALCIUM 10 MG TAB PO SCH (08:53)
[2017-04-10] MEDS: MECLIZINE HCL 25 MG TAB PO PRN (10:41)
[2017-04-10] MEDS: NEBIVOLOL HCL 5 MG TAB PO SCH (13:52)
[2017-04-10] MEDS: clonazePAM 1 MG TAB PO SCH (20:57)
[2017-04-10] MEDS: GABAPENTIN 300 MG CAP PO SCH (20:57)
[2017-04-10] MEDS: CITALOPRAM 20 MG TAB PO SCH (20:57)
[2017-04-11] MEDS: LEVOTHYROXINE 75 MCG TAB PO SCH (05:01)
[2017-04-11] MEDS: oxyCODONE IR 5 MG TAB PO PRN ×3 (07:46→20:13)
[2017-04-11] MEDS: ACETAMINOPHEN 325 MG TAB PO PRN ×2 (07:47→14:46)
[2017-04-11] MEDS: ENOXAPARIN 40 MG/0.4 ML SYR SC SCH (08:37)
[2017-04-11] MEDS: ASPIRIN 81 MG CHEWABLE TAB PO SCH (08:37)
[2017-04-11] MEDS: EZETIMIBE 10 MG TAB PO SCH (08:37)
[2017-04-11] MEDS: LISINOPRIL 40 MG TAB PO SCH (08:37)
[2017-04-11] MEDS: CHOLECALCIFEROL VIT D3 1,000 UNITS TAB PO SCH ×2 (08:37→20:14)
[2017-04-11] MEDS: OMEGA-3 FATTY ACIDS 1,000 MG CAP PO SCH (08:38)
[2017-04-11] MEDS: PANTOPRAZOLE SODIUM 40 MG TAB PO SCH (08:38)
[2017-04-11] MEDS: ROSUVASTATIN CALCIUM 10 MG TAB PO SCH (08:38)
[2017-04-11] MEDS: BISACODYL 5 MG EC TAB PO PRN (08:39)
[2017-04-11 09:37] LABS: ALANINE AMINOTRANSFERASE 56 IU/L (9-52); ALBUMIN 3.6 g/dL (3.5-5.0); ALKALINE PHOSPHATASE 67 IU/L (38-126); ANION GAP 10 mEq/L (8-16); ASPARTATE AMINOTRANSFERASE 56 IU/L (14-46); BILIRUBIN,TOTAL 0.6 mg/dL (0.1-1.4); CALCIUM 9.2 mg/dL (8.5-10.4); CARBON DIOXIDE 29 mEq/l (22-31); CHLORIDE 88 mEq/L (97-110); CREATININE 0.9 mg/dL (0.6-1.0); GLOMERULAR FILTRATION RATE > 60; GLUCOSE 80 mg/dL (70-100); POTASSIUM 4.3 mEq/L (3.5-5.2); SODIUM 127 mEq/L (134-144); TOTAL PROTEIN 6.2 g/dL (6.3-8.2)
[2017-04-11] MEDS: MECLIZINE HCL 25 MG TAB PO PRN (09:40)
--- NOTE | 2017-04-11 10:49 | SOAPPROG ---
SOAP Progress Note Assessment/Plan: Assessment: 81 yo F hospitalized 04/02/17 for R cerebellar CVA with symptoms beginning several days earlier. She has mild right-sided weakness and is showing some right-sided cerebellar signs. 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 Initial FIM 85. Walked 150 feet with front wheeled walker and standby assist/contact guard assist. Climbed and descended 3 stairs with 1 rail. Require setup and supervision for upper body and lower body dressing. She bathed seated with minimal assistance she was noted to have slowed visual processing. Continue physical and occupational therapy to optimize her mobility and activities of daily living. * Cognitive impairment. Issues with word retrieval, speed of processing,, new learning. Continue Speech and Language Pathology. * Diplopia. With R eye esotropia, consistent with cerebellar lesion, but concerning that i t is new symptom. * Secondary prevention of cerebrovascular accident. Continue aspirin, continue blood pressure control. Ezetimibe has been started for dyslipidemia. It is likely to reduce her LDL cholesterol by no more than 17%. Initiated rosuvastatin 5 mg QD beginning 04/06/17. LFTs were normal in the hospital; mild elevation 04/09/17; mild elevation improved 04/11/17. * Hyponatremia, Likely due to chlorthalidone, last dose 04/09/17. Slightly worse this morning 04/11/17 with Na 127. Check U osm & Na, and serum osm and uric acid. Initiate fluid restriction pending results Recheck in AM 04/12/17. * Hypertension. Also orthostatic hypotension cristin after meals. Changed dosing of hydralazine to avoid mealtime: 0600, 1400, 2200, starting 04/11/17. Continue lisinopril 40 mg QD, nebivolol 10 mg Q 1400, hydralazine. Had hyponatremia with chlorthalidone, h/o edema with amlodipine. * Chronic pain syndrome. Continue oxycodone continuous release. Separate acetaminophen from opiate starting 04/06/2017, with acetaminophen 650 mg q.4 hours p.r.n. and oxycodone 5-10 mg q.3 hours p.r.n. added p.r.n. Fioricet for headache. Pain improved last night and this morning 04/07/2017. Gabapentin is to help sleep and for fibromyalgia. 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 * Constipation. She reports better results at home with bisacodyl oral. We will change senna to p.r.n. and initiate physical oral 5 mg q.day. She discussed history of a bowel obstruction and concern that this may be developing now. Encouraged use of enema or suppository today 04/09/17; she reports that she will accept a suppository today. Chronic/stable conditions: * Hypothyroidism. Continue levothyroxine. * Congestive heart failure, diastolic, grade 2. Continue nebivolol and lisinopril. Continue oxygen. Has reduced oxygen requirement but lower extremity edema is noted. Initiate daily weights starting 04/09/2017. * Likely obstructive sleep apnea. Listed in her med medical history, however, she has not been on specific treatment for this other than oxygen at night. Advise a sleep study after discharge from inpatient rehabilitation and continue oxygen. * Anxiety versus depression. Will continue citalopram and clonazepam. Consider discussion with the patient regarding effects of clonazepam on balance. * Vitamin D deficiency. Continue cholecalciferol. * Gastroesophageal reflux disorder. Continue pantoprazole, especially with the recent re-initiation of aspirin. Lives in basement level room in son's home with stair glide however has several stairs to enter the house. 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 Tentative discharge goal of 04/19/2017 to son's home. FOLLOW UP: After discharge, she should follow up with primary care, with [facility]iology Clinic at the [facility] in [place], and with [facility], Dr. Lacy, or his colleagues in their outpatient clinic. 04/11/17 10:52 Subjective: C/O feeling dizzy this morning, but not lightheaded. Says she's seeing double, and has sensation of movement. Dizziness improved with meclizine. Objective: Vital Signs Temp Pulse Resp BP Pulse Ox 36.6 C 54 L 15 143/67 H 94 04/11/17 06:33 04/11/17 08:00 04/11/17 06:33 04/11/17 08:37 04/11/17 06:33 Laboratory Results 04/11/17 08:40 04/10/17 04/11/17 04/12/17 05:59 05:59 05:59 Intake Total 540 900 120 Output Total 600 1200 Balance -60 -300 120 Physical Exam - Physical Exam General Appearance: WD/WN, alert, no apparent distress Respiratory: normal breath sounds, No crackles, No rhonchi, No wheezing Cardiac/Chest: regular rate, rhythm, edema (trace B LE pretibial) Skin: normal color, warm/dry Neuro/Psych: alert, normal mood/affect, oriented x 3, 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
[2017-04-11] MEDS: NEBIVOLOL HCL 5 MG TAB PO SCH (14:47)
[2017-04-11 15:26] LABS: URIC ACID 4.9 mg/dL (2.5-6.8)
[2017-04-11] MEDS: GABAPENTIN 300 MG CAP PO SCH (20:12)
[2017-04-11] MEDS: clonazePAM 1 MG TAB PO SCH (20:13)
[2017-04-11] MEDS: CITALOPRAM 20 MG TAB PO SCH (20:15)
[2017-04-12] MEDS: oxyCODONE IR 5 MG TAB PO PRN ×2 (04:51→19:20)
[2017-04-12] MEDS: LEVOTHYROXINE 75 MCG TAB PO SCH (06:36)
[2017-04-12 08:12] LABS: ANION GAP 8 mEq/L (8-16); CALCIUM 9.1 mg/dL (8.5-10.4); CARBON DIOXIDE 31 mEq/l (22-31); CHLORIDE 89 mEq/L (97-110); CREATININE 0.8 mg/dL (0.6-1.0); GLOMERULAR FILTRATION RATE > 60; GLUCOSE 81 mg/dL (70-100); POTASSIUM 4.3 mEq/L (3.5-5.2); SODIUM 128 mEq/L (134-144)
[2017-04-12] MEDS: OMEGA-3 FATTY ACIDS 1,000 MG CAP PO SCH (08:49)
[2017-04-12] MEDS: PANTOPRAZOLE SODIUM 40 MG TAB PO SCH (08:49)
[2017-04-12] MEDS: CHOLECALCIFEROL VIT D3 1,000 UNITS TAB PO SCH ×2 (08:52→20:00)
[2017-04-12] MEDS: EZETIMIBE 10 MG TAB PO SCH (08:52)
[2017-04-12] MEDS: ROSUVASTATIN CALCIUM 10 MG TAB PO SCH (08:53)
[2017-04-12] MEDS: ASPIRIN 81 MG CHEWABLE TAB PO SCH (08:54)
[2017-04-12] MEDS: ENOXAPARIN 40 MG/0.4 ML SYR SC SCH (08:57)
[2017-04-12] MEDS: LISINOPRIL 40 MG TAB PO SCH (11:04)
--- NOTE | 2017-04-12 13:51 | SOAPPROG ---
SOAP Progress Note Assessment/Plan: Assessment: 81 yo F hospitalized 04/02/17 for R cerebellar CVA with symptoms beginning several days earlier. She has mild right-sided weakness and is showing some right-sided cerebellar signs. 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 Initial FIM 85. Walked 150 feet with front wheeled walker and standby assist/contact guard assist. Climbed and descended 3 stairs with 1 rail. Require setup and supervision for upper body and lower body dressing. She bathed seated with minimal assistance she was noted to have slowed visual processing. Continue physical and occupational therapy to optimize her mobility and activities of daily living. * Cognitive impairment. Issues with word retrieval, speed of processing,, new learning. Continue Speech and Language Pathology. * Diplopia. With R eye exotropia, consistent with cerebellar lesion, but concerning that it is new symptom. D/W Neurologist Dr. Juarez: On his recommendation ordered head CTA to evaluate for new arterial occlusion or bleed. * Secondary prevention of cerebrovascular accident. Continue aspirin, continue blood pressure control. Ezetimibe has been started for dyslipidemia. It is likely to reduce her LDL cholesterol by no more than 17%. Initiated rosuvastatin 5 mg QD beginning 04/06/17. LFTs were normal in the hospital; mild elevation 04/09/17; mild elevation improved 04/11/17. * Hyponatremia, Likely due to chlorthalidone, last dose 04/09/17. Slightly worse this morning 04/11/17 with Na 127. Osmolalities urine and serum c/w SIADH. Initiate fluid restriction pending results Improved to 128 on labs 04/12. Recheck AM 04/13/17. * Hypertension. Also orthostatic hypotension cristin after meals. Changed dosing of hydralazine to avoid mealtime: 0600, 1400, 2200, starting 04/11/17. Continue lisinopril 40 mg QD, nebivolol 10 mg Q 1400, hydralazine. Had hyponatremia with chlorthalidone, h/o edema with amlodipine. * Chronic pain syndrome. Continue oxycodone continuous release. Separate acetaminophen from opiate starting 04/06/2017, with acetaminophen 650 mg q.4 hours p.r.n. and oxycodone 5-10 mg q.3 hours p.r.n. added p.r.n. Fioricet for headache. Pain improved last night and this morning 04/07/2017. Gabapentin is to help sleep and for fibromyalgia. 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 * Constipation. She reports better results at home with bisacodyl oral. We will change senna to p.r.n. and initiate physical oral 5 mg q.day. She discussed history of a bowel obstruction and concern that this may be developing now. Encouraged use of enema or suppository today 04/09/17; she reports that she will accept a suppository today. Chronic/stable conditions: * Hypothyroidism. Continue levothyroxine. * Congestive heart failure, diastolic, grade 2. Continue nebivolol and lisinopril. Continue oxygen. Has reduced oxygen requirement but lower extremity edema is noted. Initiate daily weights starting 04/09/2017. * Likely obstructive sleep apnea. Listed in her med medical history, however, she has not been on specific treatment for this other than oxygen at night. Advise a sleep study after discharge from inpatient rehabilitation and continue oxygen. * Anxiety versus depression. Will continue citalopram and clonazepam. Consider discussion with the patient regarding effects of clonazepam on balance. * Vitamin D deficiency. Continue cholecalciferol. * Gastroesophageal reflux disorder. Continue pantoprazole, especially with the recent re-initiation of aspirin. Lives in basement level room in son's home with stair glide however has several stairs to enter the house. 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 Tentative discharge goal of 04/19/2017 to son's home. FOLLOW UP: After discharge, she should follow up with primary care, with [facility]iology Clinic at the [facility] in [place], and with [facility], Dr. Lacy, or his colleagues in their outpatient clinic. 04/12/17 13:52 Subjective: Continues to have episodes of double vision. She says these happen primarily when she is turning for instance when she gets to the end of the hallway with physical therapy and has to turn around or during physical therapy when she was instructed to turn around while letting go of her walker. She also has a dizziness which she describes as feeling of movement not specifically vertigo. She describes lightheadedness as well but it is not clear from her description whether this is a symptom of orthostatic hypotension. Objective: Vital Signs Temp Pulse Resp BP Pulse Ox 36.7 C 53 L 16 124/79 H 95 04/12/17 06:56 04/12/17 11:01 04/12/17 08:55 04/12/17 11:04 04/12/17 11:01 Laboratory Results 04/12/17 06:45 04/11/17 04/12/17 04/13/17 05:59 05:59 05:59 Intake Total 900 1240 300 Output Total 1200 1800 Balance -300 -560 300 Physical Exam - Physical Exam General Appearance: WD/WN, alert, no apparent distress, obese Respiratory: normal breath sounds, No crackles, No rhonchi, No wheezing Cardiac/Chest: regular rate, rhythm, edema (trace B LE), systolic murmur (1 - 2/ 4 systolic at LSB) Skin: normal color, warm/dry Neuro/Psych: alert, normal mood/affect, oriented x 3, other (RUE ataxia cristin with handwriting; no noticable convergence deficit or exotropia on current exam. ) ICD10 Worksheet Patient Problems: Problems Problem Status Onset Cerebellar stroke Acute
[2017-04-12] MEDS: NEBIVOLOL HCL 5 MG TAB PO SCH (14:37)
[2017-04-12] MEDS ORDERED: IOPAMIDOL (ISOVUE 370) 100 ML BTL IV ONE (16:09)
[2017-04-12] MEDS: GABAPENTIN 300 MG CAP PO SCH (20:00)
[2017-04-12] MEDS: CITALOPRAM 20 MG TAB PO SCH (20:00)
[2017-04-12] MEDS: ACETAMINOPHEN 325 MG TAB PO PRN (21:01)
[2017-04-12] MEDS: clonazePAM 1 MG TAB PO SCH (21:01)
[2017-04-13] MEDS: ACETAMINOPHEN 325 MG TAB PO PRN ×4 (04:37→20:10)
[2017-04-13] MEDS: LEVOTHYROXINE 75 MCG TAB PO SCH (04:37)
[2017-04-13] MEDS: ROSUVASTATIN CALCIUM 10 MG TAB PO SCH (08:10)
[2017-04-13] MEDS: CHOLECALCIFEROL VIT D3 1,000 UNITS TAB PO SCH ×2 (08:10→20:02)
[2017-04-13] MEDS: PANTOPRAZOLE SODIUM 40 MG TAB PO SCH (08:10)
[2017-04-13] MEDS: OMEGA-3 FATTY ACIDS 1,000 MG CAP PO SCH (08:10)
[2017-04-13] MEDS: ASPIRIN 81 MG CHEWABLE TAB PO SCH (08:11)
[2017-04-13] MEDS: EZETIMIBE 10 MG TAB PO SCH (08:11)
[2017-04-13] MEDS: ENOXAPARIN 40 MG/0.4 ML SYR SC SCH (08:12)
--- NOTE | 2017-04-13 10:31 | SOAPPROG ---
SOAP Progress Note Assessment/Plan: Assessment: 81 yo F hospitalized 04/02/17 for R cerebellar CVA with symptoms beginning several days earlier. She has mild right-sided weakness and is showing some right-sided cerebellar signs. 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 Initial FIM 85 as of 04/09/17. Walked 150 feet with front wheeled walker and standby assist/contact guard assist. Climbed and descended 3 stairs with 1 rail. Requires setup and supervision for upper body and lower body dressing. She bathed seated with minimal assistance she was noted to have slowed visual processing. Collier balance 25/56 on 04/12/17. Continue physical and occupational therapy to optimize her mobility and activities of daily living. * Cognitive impairment. Issues with word retrieval, speed of processing,, new learning. Continue Speech and Language Pathology. * Diplopia. With R eye exotropia, consistent with cerebellar lesion, but concerning that it is new symptom. D/W Neurologist Dr. Juarez: On his recommendation ordered head CTA 04/12/17, which was unchanged from prior imaging from [facility]. Mild proptosis was noted on the CT scan. * Secondary prevention of cerebrovascular accident. Continue aspirin, continue blood pressure control. Ezetimibe has been started for dyslipidemia. It is likely to reduce her LDL cholesterol by no more than 17%. Initiated rosuvastatin 5 mg QD beginning 04/06/17. LFTs were normal in the hospital; mild elevation 04/09/17; mild elevation improved 04/11/17. * Hyponatremia, Likely due to chlorthalidone, last dose 04/09/17. Slightly worse this morning 04/11/17 with Na 127. Osmolalities urine and serum c/w SIADH. Initiate fluid restriction pending results Improved to 128 on labs 04/12 and to 130 on 04/13/17 Recheck AM 04/16/17. * Hypertension. Also orthostatic hypotension cristin after meals. Changed dosing of hydralazine to avoid mealtime: 0600, 1400, 2200, starting 04/11/17; D/C AM dose starting 04/13/17 due to hypotension and orthoostassi in the morning. Change lisinopril from 40 mg QD to 20 mg BID starting 04/13/17. Continue nebivolol 10 mg Q 1400. Had hyponatremia with chlorthalidone, h/o edema with amlodipine. Consider amiloride of spironolactone; would need close attention to Na and K. * Chronic pain syndrome. Continue oxycodone continuous release. Separate acetaminophen from opiate starting 04/06/2017, with acetaminophen 650 mg q.4 hours p.r.n. and oxycodone 5-10 mg q.3 hours p.r.n. added p.r.n. Fioricet for headache. Pain improved last night and this morning 04/07/2017. Gabapentin is to help sleep and for fibromyalgia. 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 Chronic/stable conditions: * Constipation. She reports better results at home with bisacodyl oral. We will change senna to p.r.n. and initiate physical oral 5 mg q.day. She discussed history of a bowel obstruction and concern that this may be developing now. Encouraged use of enema or suppository today 04/09/17; she reports that she will accept a suppository today. * Hypothyroidism. Continue levothyroxine. * Congestive heart failure, diastolic, grade 2. Continue nebivolol and lisinopril. Continue oxygen. Has reduced oxygen requirement but lower extremity edema is noted. Initiate daily weights starting 04/09/2017. * Likely obstructive sleep apnea. Listed in her med medical history, however, she has not been on specific treatment for this other than oxygen at night. Advise a sleep study after discharge from inpatient rehabilitation and continue oxygen. * Anxiety versus depression. Will continue citalopram and clonazepam. Consider discussion with the patient regarding effects of clonazepam on balance. * Vitamin D deficiency. Continue cholecalciferol. * Gastroesophageal reflux disorder. Continue pantoprazole, especially with the recent re-initiation of aspirin. Lives in basement level room in son's home with stair glide however has several stairs to enter the house. 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 Tentative discharge goal of 04/19/2017 to son's home. FOLLOW UP: After discharge, she should follow up with primary care, with [facility]iology [facility] at the [facility] in [place], and with [facility], Dr. Lacy, or his colleagues in their outpatient clinic. 04/13/17 12:10 Subjective: Continues to have headache, right-sided back of Head and frontal. She has double vision when she turns, otherwise no double vision. Denies nausea, vomiting, constipation, diarrhea, fevers or chills. No dysuria. No cough or dyspnea. Objective: Vital Signs Temp Pulse Resp BP Pulse Ox 36.5 C 56 L 16 96/49 L 95 04/13/17 06:21 04/13/17 07:55 04/13/17 06:21 04/13/17 07:55 04/13/17 07:55 Laboratory Results 04/12/17 06:45 04/12/17 04/13/17 04/14/17 05:59 05:59 05:59 Intake Total 1240 1000 360 Output Total 1800 951 Balance -560 49 360 Physical Exam - Physical Exam General Appearance: WD/WN, alert, no apparent distress Respiratory: normal breath sounds, No crackles, No rhonchi, No wheezing Cardiac/Chest: regular rate, rhythm, edema (trace B LE), systolic murmur (LSB) Skin: normal color, warm/dry Neuro/Psych: no motor/sensory deficits, alert, normal mood/affect, oriented x 3 ICD10 Worksheet Patient Problems: Problems Problem Status Onset Cerebellar stroke Acute
[2017-04-13] MEDS: LISINOPRIL 40 MG TAB PO SCH (10:47)
[2017-04-13 11:11] LABS: ANION GAP 12 mEq/L (8-16); CALCIUM 9.3 mg/dL (8.5-10.4); CARBON DIOXIDE 28 mEq/l (22-31); CHLORIDE 90 mEq/L (97-110); CREATININE 0.9 mg/dL (0.6-1.0); GLOMERULAR FILTRATION RATE > 60; GLUCOSE 128 mg/dL (70-100); POTASSIUM 4.1 mEq/L (3.5-5.2); SODIUM 130 mEq/L (134-144)
[2017-04-13] MEDS: NEBIVOLOL HCL 5 MG TAB PO SCH (14:08)
[2017-04-13] MEDS: oxyCODONE IR 5 MG TAB PO PRN ×2 (15:28→20:09)
[2017-04-13] MEDS: GABAPENTIN 300 MG CAP PO SCH (20:02)
[2017-04-13] MEDS: LISINOPRIL 20 MG TAB PO SCH (20:02)
[2017-04-13] MEDS: clonazePAM 1 MG TAB PO SCH (20:02)
[2017-04-13] MEDS: CITALOPRAM 20 MG TAB PO SCH (20:02)
[2017-04-14] MEDS: LEVOTHYROXINE 75 MCG TAB PO SCH (05:38)
[2017-04-14] MEDS: ASPIRIN 81 MG CHEWABLE TAB PO SCH (08:15)
[2017-04-14] MEDS: CHOLECALCIFEROL VIT D3 1,000 UNITS TAB PO SCH ×2 (08:15→20:00)
[2017-04-14] MEDS: ENOXAPARIN 40 MG/0.4 ML SYR SC SCH (08:15)
[2017-04-14] MEDS: LISINOPRIL 20 MG TAB PO SCH ×2 (08:16→20:02)
[2017-04-14] MEDS: OMEGA-3 FATTY ACIDS 1,000 MG CAP PO SCH (08:16)
[2017-04-14] MEDS: ROSUVASTATIN CALCIUM 10 MG TAB PO SCH (08:16)
[2017-04-14] MEDS: PANTOPRAZOLE SODIUM 40 MG TAB PO SCH (08:16)
[2017-04-14] MEDS: EZETIMIBE 10 MG TAB PO SCH (08:16)
--- NOTE | 2017-04-14 09:21 | SOAPPROG ---
SOAP Progress Note Assessment/Plan: Assessment: 81 yo F with R cerebellar CVA, with mild right hemipareses and right-sided cerebellar signs. 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 Initial FIM 85 as of 04/09/17. Walked 150 feet with front wheeled walker and standby assist/contact guard assist. Climbed and descended 3 stairs with 1 rail. Requires setup and supervision for upper body and lower body dressing. She bathed seated with minimal assistance she was noted to have slowed visual processing. Collier balance 25/56 on 04/12/17. Continue physical and occupational therapy to optimize her mobility and activities of daily living. * Cognitive impairment. Issues with word retrieval, speed of processing,, new learning. Continue Speech and Language Pathology. * Diplopia. With R eye exotropia, consistent with cerebellar lesion, but concerning that it is new symptom. D/W Neurologist Dr. Juarez: On his recommendation ordered head CTA 04/12/17, which was unchanged from prior imaging from [facility]. Mild proptosis was noted on the CT scan. * Secondary prevention of cerebrovascular accident. Continue aspirin, continue blood pressure control. Ezetimibe has been started for dyslipidemia. It is likely to reduce her LDL cholesterol by no more than 17%. Initiated rosuvastatin 5 mg QD beginning 04/06/17. LFTs were normal in the hospital; mild elevation 04/09/17; mild elevation improved 04/11/17. * Hyponatremia, Likely due to chlorthalidone, last dose 04/09/17. At its worse 04/11/17 with Na 127, improved to 128 on 04/12/17 and to 130 on 04/13/17. Osmolalities urine and serum c/w SIADH. Cont fluid restriction. Recheck AM 04/16. * Hypertension. Also orthostatic hypotension cristin after meals. Changed dosing of hydralazine to avoid mealtime: 0600, 1400, 2200, starting 04/11/17; D/C AM dose starting 04/13/17 due to hypotension and orthoostassi in the morning. Change lisinopril from 40 mg QD to 20 mg BID starting 04/13/17. Continue nebivolol 10 mg Q 1400. Had hyponatremia with chlorthalidone, h/o edema with amlodipine. Consider amiloride of spironolactone; would need close attention to Na and K. * Chronic pain syndrome. Continue oxycodone continuous release. Separate acetaminophen from opiate starting 04/06/2017, with acetaminophen 650 mg q.4 hours p.r.n. and oxycodone 5-10 mg q.3 hours p.r.n. added p.r.n. Fioricet for headache. Pain improved last night and this morning 04/07/2017. Gabapentin is to help sleep and for fibromyalgia. 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 Chronic/stable conditions: * Constipation. She reports better results at home with bisacodyl oral. We will change senna to p.r.n. and initiate physical oral 5 mg q.day. She discussed history of a bowel obstruction and concern that this may be developing now. Encouraged use of enema or suppository today 04/09/17; she reports that she will accept a suppository today. * Hypothyroidism. Continue levothyroxine. * Congestive heart failure, diastolic, grade 2. Continue nebivolol and lisinopril. Continue oxygen. Has reduced oxygen requirement but lower extremity edema is noted. Initiate daily weights starting 04/09/2017. * Likely obstructive sleep apnea. Listed in her med medical history, however, she has not been on specific treatment for this other than oxygen at night. Advise a sleep study after discharge from inpatient rehabilitation and continue oxygen. * Anxiety versus depression. Will continue citalopram and clonazepam. Consider discussion with the patient regarding effects of clonazepam on balance. * Vitamin D deficiency. Continue cholecalciferol. * Gastroesophageal reflux disorder. Continue pantoprazole, especially with the recent re-initiation of aspirin. FOLLOW UP: After discharge, she should follow up with primary care, with Cardiology Clinic at the [facility] in [place], and with [facility], Dr. Lacy, or his colleagues in their outpatient clinic. Plan: Cont Dr Pierre rehab treatment plan 04/14/17 09:17 04/14/17 09:21 Subjective: Pleasant. No new problems or C/O's No F/C/CP/SOB/N/V/D/C Objective: Vital Signs Temp Pulse Resp BP Pulse Ox 36.8 C 52 L 16 140/83 H 93 04/14/17 08:00 04/14/17 08:00 04/14/17 08:00 04/14/17 08:16 04/14/17 08:00 Laboratory Results 04/13/17 10:00 04/13/17 04/14/17 04/15/17 05:59 05:59 05:59 Intake Total 1000 810 60 Output Total 951 1070 Balance 49 -260 60 Physical Exam - Physical Exam General Appearance: WD/WN, alert, no apparent distress Neck: supple Respiratory: lungs clear Cardiac/Chest: regular rate, rhythm Skin: normal color, warm/dry Extremities: No pedal edema, No calf tenderness Neuro/Psych: alert, normal mood/affect, oriented x 3, abnormal gait, motor weakness, other (no acute changes) ICD10 Worksheet Patient Problems: Problems Problem Status Onset Cerebellar stroke Acute
[2017-04-14] MEDS: ACETAMINOPHEN 325 MG TAB PO PRN ×2 (11:15→20:08)
[2017-04-14] MEDS: NEBIVOLOL HCL 5 MG TAB PO SCH (13:40)
[2017-04-14] MEDS: oxyCODONE IR 5 MG TAB PO PRN ×4 (13:40→22:06)
[2017-04-14] MEDS: clonazePAM 1 MG TAB PO SCH (20:01)
[2017-04-14] MEDS: CITALOPRAM 20 MG TAB PO SCH (20:01)
[2017-04-14] MEDS: GABAPENTIN 300 MG CAP PO SCH (20:02)
[2017-04-15] MEDS: oxyCODONE IR 5 MG TAB PO PRN ×4 (01:29→21:56)
[2017-04-15] MEDS: ACETAMINOPHEN 325 MG TAB PO PRN ×3 (01:30→17:47)
[2017-04-15] MEDS ORDERED: ACET/CAFFEINE/BUTA FIORICET 1 EACH TAB PO PRN (06:12)
[2017-04-15] MEDS: LEVOTHYROXINE 75 MCG TAB PO SCH (06:27)
[2017-04-15] MEDS: OMEGA-3 FATTY ACIDS 1,000 MG CAP PO SCH (08:21)
[2017-04-15] MEDS: ROSUVASTATIN CALCIUM 10 MG TAB PO SCH (08:21)
[2017-04-15] MEDS: CHOLECALCIFEROL VIT D3 1,000 UNITS TAB PO SCH ×2 (08:21→20:10)
[2017-04-15] MEDS: PANTOPRAZOLE SODIUM 40 MG TAB PO SCH (08:22)
[2017-04-15] MEDS: EZETIMIBE 10 MG TAB PO SCH (08:22)
[2017-04-15] MEDS: ASPIRIN 81 MG CHEWABLE TAB PO SCH (08:22)
[2017-04-15] MEDS: LISINOPRIL 20 MG TAB PO SCH ×2 (08:22→20:10)
[2017-04-15] MEDS: ENOXAPARIN 40 MG/0.4 ML SYR SC SCH (08:26)
--- NOTE | 2017-04-15 12:00 | SOAPPROG ---
SOAP Progress Note Assessment/Plan: Assessment: 81 yo F with R cerebellar CVA, with mild right hemipareses and right-sided cerebellar signs. 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 Initial FIM 85 as of 04/09/17. Collier balance 25/56 on 04/12/17. Continue physical and occupational therapy to optimize her mobility and activities of daily living. * Cognitive impairment. Issues with word retrieval, speed of processing, new learning. Continue Speech and Language Pathology. * Diplopia. With R eye exotropia, consistent with cerebellar lesion, but concerning that it is new symptom. D/W Neurologist Dr. Juarez: On his recommendation ordered head CTA 04/12/17, which was unchanged from prior imaging from [facility]. Mild proptosis was noted on the CT scan. * Secondary prevention of cerebrovascular accident. Continue aspirin, continue blood pressure control. Ezetimibe has been started for dyslipidemia. It is likely to reduce her LDL cholesterol by no more than 17%. Initiated rosuvastatin 5 mg QD beginning 04/06/17. LFTs were normal in the hospital; mild elevation 04/09/17; mild elevation improved 04/11/17. * Hyponatremia, Likely due to chlorthalidone, last dose 04/09/17. At its worse 04/11/17 with Na 127, improved to 128 on 04/12/17 and to 130 on 04/13/17. Osmolalities urine and serum c/w SIADH. Cont fluid restriction. Recheck AM 04/16. * Hypertension. Also orthostatic hypotension cristin after meals. Changed dosing of hydralazine to avoid mealtime: 0600, 1400, 2200, starting 04/11/17; D/C AM dose starting 04/13/17 due to hypotension and orthoostassi in the morning. Change lisinopril from 40 mg QD to 20 mg BID starting 04/13/17. Continue nebivolol 10 mg Q 1400. Had hyponatremia with chlorthalidone, h/o edema with amlodipine. Consider amiloride of spironolactone; would need close attention to Na and K. * Chronic pain syndrome. Continue oxycodone continuous release. Separate acetaminophen from opiate starting 04/06/2017, with acetaminophen 650 mg q.4 hours p.r.n. and oxycodone 5-10 mg q.3 hours p.r.n. added p.r.n. Fioricet for headache. Pain improved last night and this morning 04/07/2017. Gabapentin is to help sleep and for fibromyalgia. 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 Chronic/stable conditions: * Constipation. She reports better results at home with bisacodyl oral. We will change senna to p.r.n. and initiate physical oral 5 mg q.day. She discussed history of a bowel obstruction and concern that this may be developing now. Encouraged use of enema or suppository today 04/09/17; she reports that she will accept a suppository today. * Hypothyroidism. Continue levothyroxine. * Congestive heart failure, diastolic, grade 2. Continue nebivolol and lisinopril. Continue oxygen. Has reduced oxygen requirement but lower extremity edema is noted. Initiate daily weights starting 04/09/2017. * Likely obstructive sleep apnea. Listed in her med medical history, however, she has not been on specific treatment for this other than oxygen at night. Advise a sleep study after discharge from inpatient rehabilitation and continue oxygen. * Anxiety versus depression. Will continue citalopram and clonazepam. Consider discussion with the patient regarding effects of clonazepam on balance. * Vitamin D deficiency. Continue cholecalciferol. * Gastroesophageal reflux disorder. Continue pantoprazole, especially with the recent re-initiation of aspirin. FOLLOW UP: After discharge, she should follow up with primary care, with Cardiology Clinic at the [facility] in [place], and with [facility], Dr. Lacy, or his colleagues in their outpatient clinic. Plan: Cont Dr Pierre rehab treatment plan 04/15/17 11:54 Subjective: Slept poorly last PM until pillows adjusted. Query if increased arthritic pain in L Low Back and LLE is 2/2 compensating for RLE weakness No F/C/CP/SOB/N/V/D/C Objective: Vital Signs Temp Pulse Resp BP Pulse Ox 36.9 C 51 L 16 134/58 H 92 04/15/17 07:34 04/15/17 07:34 04/15/17 07:34 04/15/17 08:22 04/15/17 07:34 Laboratory Results 04/13/17 10:00 04/14/17 04/15/17 04/16/17 05:59 05:59 05:59 Intake Total 810 880 240 Output Total 9380 5250 Balance -260 -704 240 Physical Exam - Physical Exam General Appearance: alert, no apparent distress Neck: supple Respiratory: lungs clear Cardiac/Chest: regular rate, rhythm Skin: normal color, warm/dry Extremities: No pedal edema, No calf tenderness Neuro/Psych: alert, normal mood/affect, oriented x 3, EOM palsy, motor weakness , sensory deficit, cognition abnormalities ICD10 Worksheet Patient Problems: Problems Problem Status Onset Cerebellar stroke Acute
[2017-04-15] MEDS: NEBIVOLOL HCL 5 MG TAB PO SCH (13:56)
[2017-04-15] MEDS: BISACODYL 5 MG EC TAB PO PRN (19:14)
[2017-04-15] MEDS: CITALOPRAM 20 MG TAB PO SCH (20:00)
[2017-04-15] MEDS: clonazePAM 1 MG TAB PO SCH (20:10)
[2017-04-15] MEDS: GABAPENTIN 300 MG CAP PO SCH (20:11)
[2017-04-16] MEDS: LEVOTHYROXINE 75 MCG TAB PO SCH (05:41)
[2017-04-16] MEDS: LISINOPRIL 20 MG TAB PO SCH ×2 (08:04→19:52)
[2017-04-16] MEDS: CHOLECALCIFEROL VIT D3 1,000 UNITS TAB PO SCH ×2 (08:12→19:54)
[2017-04-16] MEDS: ENOXAPARIN 40 MG/0.4 ML SYR SC SCH (08:12)
[2017-04-16] MEDS: EZETIMIBE 10 MG TAB PO SCH (08:12)
[2017-04-16] MEDS: OMEGA-3 FATTY ACIDS 1,000 MG CAP PO SCH (08:12)
[2017-04-16] MEDS: ASPIRIN 81 MG CHEWABLE TAB PO SCH (08:12)
[2017-04-16] MEDS: PANTOPRAZOLE SODIUM 40 MG TAB PO SCH (08:12)
[2017-04-16 08:13] LABS: ANION GAP 11 mEq/L (8-16); CALCIUM 8.9 mg/dL (8.5-10.4); CARBON DIOXIDE 28 mEq/l (22-31); CHLORIDE 92 mEq/L (97-110); CREATININE 0.8 mg/dL (0.6-1.0); GLOMERULAR FILTRATION RATE > 60; GLUCOSE 80 mg/dL (70-100); POTASSIUM 4.3 mEq/L (3.5-5.2); SODIUM 131 mEq/L (134-144)
[2017-04-16] MEDS: ROSUVASTATIN CALCIUM 10 MG TAB PO SCH (08:13)
--- NOTE | 2017-04-16 09:55 | SOAPPROG ---
SOAP Progress Note Assessment/Plan: Assessment: 81 yo F hospitalized 04/02/17 for R cerebellar CVA with symptoms beginning several days earlier. She has mild right-sided weakness and is showing some right-sided cerebellar signs. 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 Initial FIM 85 as of 04/09/17, improved to 97 as of 04/16/2017. Walking > 150 feet with front wheeled walker and standby assist; wants to transition to cane but not ready. Climbed and descended 9 stairs with 1 rail. Requires SBA for ADLs. LOB occ wiht reaching or turning. R hand functional but impairment to handwriting. Collier balance 25/56 on 04/12/17. Continue physical and occupational therapy to optimize her mobility and activities of daily living. * Cognitive impairment. Issues with word retrieval, speed of processing, new learning improving; working on higher level cognitive functions as of 2016. Continue Speech and Language Pathology. * Diplopia. With R eye exotropia, consistent with cerebellar lesion, but concerning that it is new symptom. D/W Neurologist Dr. Juarez: On his recommendation ordered head CTA 04/12/17, which was unchanged from prior imaging from [facility]. Mild proptosis was noted on the CT scan. * Secondary prevention of cerebrovascular accident. Continue aspirin, continue blood pressure control. Ezetimibe has been started for dyslipidemia. It is likely to reduce her LDL cholesterol by no more than 17%. Initiated rosuvastatin 5 mg QD beginning 04/06/17. LFTs were normal in the hospital; mild elevation 04/09/17; mild elevation improved 04/11/17. * Hyponatremia, Likely due to chlorthalidone, last dose 04/09/17. Osmolalities urine and serum c/w SIADH. Initiate fluid restriction 1500 cc/day. Improved to 128 on labs 04/12/17 and to 130 on 04/13/17 Continues gradual improvement; Na 131 on 04/16/17. * Hypertension. Also orthostatic hypotension cristin after meals. Overall adequate control except occasional systolic excursions in the evening. Continue hydralazine 1400, change evening dose from 2200 to 2100 starting ; D/C'd AM dose starting 04/13/17 due to hypotension and orthostasis in the morning. Continue lisinopril 20 mg BID . Continue nebivolol 10 mg Q 1400; consider change to 20 mg if evening hypertensive episodes continue. Had hyponatremia with chlorthalidone, h/o edema with amlodipine. Consider amiloride of spironolactone; would need close attention to Na and K. * Chronic pain syndrome. Continue oxycodone continuous release. Separate acetaminophen from opiate starting 04/06/2017, with acetaminophen 650 mg q.4 hours p.r.n. and oxycodone 5-10 mg q.3 hours p.r.n. added p.r.n. Fioricet for headache. Pain improved last night and this morning 04/07/2017. Gabapentin is to help sleep and for fibromyalgia. 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 Chronic/stable conditions: * Constipation. She reports better results at home with bisacodyl oral. We will change senna to p.r.n. and initiate physical oral 5 mg q.day. She discussed history of a bowel obstruction and concern that this may be developing now. Encouraged use of enema or suppository today 04/09/17; she reports that she will accept a suppository today. * Hypothyroidism. Continue levothyroxine. * Congestive heart failure, diastolic, grade 2. Continue nebivolol and lisinopril. Continue oxygen. Has reduced oxygen requirement but lower extremity edema is noted. Initiate daily weights starting 04/09/2017. * Likely obstructive sleep apnea. Listed in her med medical history, however, she has not been on specific treatment for this other than oxygen at night. Advise a sleep study after discharge from inpatient rehabilitation and continue oxygen. * Anxiety versus depression. Will continue citalopram and clonazepam. Consider discussion with the patient regarding effects of clonazepam on balance. * Vitamin D deficiency. Continue cholecalciferol. * Gastroesophageal reflux disorder. Continue pantoprazole, especially with the recent re-initiation of aspirin. Attendant staffing 15 minutes. Attendant family meeting, 30 minutes, patient and son present. Lives in basement level room in son's home with stair glide however has several stairs to enter the house. 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 Discharge 04/19/2017 to son's home. FOLLOW UP: After discharge, she should follow up with primary care, with [facility]iology Clinic at the [facility] in [place], and with [facility], Dr. Lacy, or his colleagues in their outpatient clinic. 04/16/17 11:48 Subjective: No complaints. Denies dizziness or lightheadedness. She has had increased pain in the evenings likely due to arthritis and increased activity. Denies constipation. Good appetite. No fevers, chills, cough, dyspnea. Objective: Vital Signs Temp Pulse Resp BP Pulse Ox 36.6 C 52 L 16 139/79 H 91 L 04/16/17 05:36 04/16/17 08:00 04/16/17 08:00 04/16/17 08:04 04/16/17 08:00 Laboratory Results 04/16/17 06:30 04/15/17 04/16/17 04/17/17 05:59 05:59 05:59 Intake Total 880 1270 Output Total 1370 1300 Balance -490 -30 - Time Spent With Patient Time Spent With Patient: Greater than 35 minutes 4 times a day, including more than 50% of time in coordination of care during staffing meeting, and in counseling during family meeting. Physical Exam - Physical Exam General Appearance: WD/WN, alert, no apparent distress, obese Respiratory: normal breath sounds, No crackles, No rhonchi, No wheezing Cardiac/Chest: regular rate, rhythm, edema (trace B pretibial), systolic murmur Neuro/Psych: no motor/sensory deficits, alert, normal mood/affect, oriented x 3 , other (Ambulatig with PT, FWW, overall normal gait but slow.) ICD10 Worksheet Patient Problems: Problems Problem Status Onset Cerebellar stroke Acute
[2017-04-16] MEDS: NEBIVOLOL HCL 5 MG TAB PO SCH (14:09)
[2017-04-16] MEDS: ACETAMINOPHEN 325 MG TAB PO PRN ×2 (15:04→21:26)
[2017-04-16] MEDS: oxyCODONE IR 5 MG TAB PO PRN ×2 (15:08→21:26)
[2017-04-16] MEDS: GABAPENTIN 300 MG CAP PO SCH (19:50)
[2017-04-16] MEDS: CITALOPRAM 20 MG TAB PO SCH (19:51)
[2017-04-16] MEDS: clonazePAM 1 MG TAB PO SCH (19:52)
[2017-04-17] MEDS: LEVOTHYROXINE 75 MCG TAB PO SCH (05:20)
[2017-04-17] MEDS: EZETIMIBE 10 MG TAB PO SCH (08:43)
[2017-04-17] MEDS: OMEGA-3 FATTY ACIDS 1,000 MG CAP PO SCH (08:43)
[2017-04-17] MEDS: PANTOPRAZOLE SODIUM 40 MG TAB PO SCH (08:43)
[2017-04-17] MEDS: ASPIRIN 81 MG CHEWABLE TAB PO SCH (08:43)
[2017-04-17] MEDS: ROSUVASTATIN CALCIUM 10 MG TAB PO SCH (08:44)
[2017-04-17] MEDS: CHOLECALCIFEROL VIT D3 1,000 UNITS TAB PO SCH ×2 (08:45→20:07)
[2017-04-17] MEDS: LISINOPRIL 20 MG TAB PO SCH ×2 (08:46→20:08)
--- NOTE | 2017-04-17 11:20 | SOAPPROG ---
SOAP Progress Note Assessment/Plan: Assessment: 81 yo F hospitalized 04/02/17 for R cerebellar CVA with symptoms beginning several days earlier. She has mild right-sided weakness and is showing some right-sided cerebellar signs. 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 Initial FIM 85 as of 04/09/17, improved to 97 as of 04/16/2017. Walking > 150 feet with front wheeled walker and standby assist; wants to transition to cane but not ready. Climbed and descended 9 stairs with 1 rail. Requires SBA for ADLs. LOB occ with reaching or turning. R hand functional but impairment to handwriting. Collier balance 25/56 on 04/12/17. Now independent in room as of 04/17. Continue physical and occupational therapy to optimize her mobility and activities of daily living. * Cognitive impairment. Issues with word retrieval, speed of processing, new learning improving; working on higher level cognitive functions as of 2016. Continue Speech and Language Pathology. * Diplopia. With R eye exotropia, consistent with cerebellar lesion; occurs with turning. D/W Neurologist Dr. Juarez: On his recommendation ordered head CTA 04/12/17, which was unchanged from prior imaging from [facility]. Mild proptosis was noted on the CT scan. * Secondary prevention of cerebrovascular accident. Continue aspirin, continue blood pressure control. Ezetimibe has been started for dyslipidemia. It is likely to reduce her LDL cholesterol by no more than 17%. Initiated rosuvastatin 5 mg QD beginning 04/06/17. LFTs were normal in the hospital; mild elevation 04/09/17; mild elevation improved 04/11/17. * Hyponatremia, Likely due to chlorthalidone, last dose 04/09/17. Osmolalities urine and serum c/w SIADH. Initiate fluid restriction 1500 cc/day. Improved to 128 on labs 04/12/17 and to 130 on 04/13/17 Continues gradual improvement; Na 131 on 04/16/17. * Hypertension. Also orthostatic hypotension cristin after meals. Overall adequate control except occasional systolic excursions in the evening. Continue hydralazine 1400, change evening dose from 2200 to 2100 starting ; D/C'd AM dose starting 04/13/17 due to hypotension and orthostasis in the morning. Continue lisinopril 20 mg BID . Increase nebivolol from 10 mg Q 1400 to 20 mg. Had hyponatremia with chlorthalidone, h/o edema with amlodipine. Consider amiloride of spironolactone; would need close attention to Na and K. * Chronic pain syndrome. Continue oxycodone continuous release. Separate acetaminophen from opiate starting 04/06/2017, with acetaminophen 650 mg q.4 hours p.r.n. and oxycodone 5-10 mg q.3 hours p.r.n. added p.r.n. Fioricet for headache. Pain improved last night and this morning 04/07/2017. Gabapentin is to help sleep and for fibromyalgia. 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 Chronic/stable conditions: * Constipation. She reports better results at home with bisacodyl oral. We will change senna to p.r.n. and initiate physical oral 5 mg q.day. She discussed history of a bowel obstruction and concern that this may be developing now. Encouraged use of enema or suppository today 04/09/17; she reports that she will accept a suppository today. * Hypothyroidism. Continue levothyroxine. * Congestive heart failure, diastolic, grade 2. Continue nebivolol and lisinopril. Continue oxygen. Has reduced oxygen requirement but lower extremity edema is noted. Initiate daily weights starting 04/09/2017. * Likely obstructive sleep apnea. Listed in her med medical history, however, she has not been on specific treatment for this other than oxygen at night. Advise a sleep study after discharge from inpatient rehabilitation and continue oxygen. * Anxiety versus depression. Will continue citalopram and clonazepam. Consider discussion with the patient regarding effects of clonazepam on balance. * Vitamin D deficiency. Continue cholecalciferol. * Gastroesophageal reflux disorder. Continue pantoprazole, especially with the recent re-initiation of aspirin. Lives in basement level room in son's home with stair glide however has several stairs to enter the house. 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 Discharge 04/19/2017 to son's home. FOLLOW UP: After discharge, she should follow up with primary care, with [facility] at the [facility] in [place], and with [facility], Dr. Lacy, or his colleagues in their outpatient clinic. 04/17/17 11:17 Subjective: No complaints. Denies dizziness or lightheadedness. No fevers, chills, cough, dyspnea. Objective: Vital Signs Temp Pulse Resp BP Pulse Ox 37.2 C 58 L 15 148/78 H 93 04/17/17 10:28 04/17/17 10:28 04/17/17 10:28 04/17/17 10:28 04/17/17 10:28 Laboratory Results 04/16/17 06:30 04/16/17 04/17/17 04/18/17 05:59 05:59 05:59 Intake Total 1270 1750 440 Output Total 1300 1675 Balance -30 75 440 Physical Exam - Physical Exam General Appearance: WD/WN, alert, no apparent distress Respiratory: normal breath sounds, No crackles, No rhonchi, No wheezing Cardiac/Chest: regular rate, rhythm, edema (Trace bilateral pretibial edema) Skin: normal color, warm/dry Neuro/Psych: no motor/sensory deficits, alert, normal mood/affect, oriented x 3 ICD10 Worksheet Patient Problems: Problems Problem Status Onset Cerebellar stroke Acute
[2017-04-17] MEDS: oxyCODONE IR 5 MG TAB PO PRN ×2 (12:22→19:06)
[2017-04-17] MEDS: ACETAMINOPHEN 325 MG TAB PO PRN ×2 (12:22→19:06)
[2017-04-17] MEDS: NEBIVOLOL HCL 5 MG TAB PO SCH (15:13)
[2017-04-17] MEDS: GABAPENTIN 300 MG CAP PO SCH (20:06)
[2017-04-17] MEDS: CITALOPRAM 20 MG TAB PO SCH (20:07)
[2017-04-17] MEDS: clonazePAM 1 MG TAB PO SCH (20:07)
[2017-04-17] MEDS: BISACODYL 5 MG EC TAB PO PRN (20:35)
[2017-04-18] MEDS: LEVOTHYROXINE 75 MCG TAB PO SCH (06:05)
[2017-04-18 07:43] VITALS: TEMP 97.8
[2017-04-18] MEDS: LISINOPRIL 20 MG TAB PO SCH ×2 (08:09→20:16)
[2017-04-18] MEDS: ROSUVASTATIN CALCIUM 10 MG TAB PO SCH (08:09)
[2017-04-18] MEDS: EZETIMIBE 10 MG TAB PO SCH (08:10)
[2017-04-18] MEDS: PANTOPRAZOLE SODIUM 40 MG TAB PO SCH (08:10)
[2017-04-18] MEDS: OMEGA-3 FATTY ACIDS 1,000 MG CAP PO SCH (08:10)
[2017-04-18] MEDS: CHOLECALCIFEROL VIT D3 1,000 UNITS TAB PO SCH ×2 (08:10→20:15)
[2017-04-18] MEDS: ASPIRIN 81 MG CHEWABLE TAB PO SCH (08:10)
[2017-04-18 08:35] LABS: ALANINE AMINOTRANSFERASE 56 IU/L (9-52); ALBUMIN 3.6 g/dL (3.5-5.0); ALKALINE PHOSPHATASE 60 IU/L (38-126); ANION GAP 11 mEq/L (8-16); ASPARTATE AMINOTRANSFERASE 45 IU/L (14-46); BILIRUBIN,TOTAL 0.5 mg/dL (0.1-1.4); CALCIUM 8.9 mg/dL (8.5-10.4); CARBON DIOXIDE 28 mEq/l (22-31); CHLORIDE 94 mEq/L (97-110); CHOLESTEROL 120 mg/dL (140-220); CREATININE 0.8 mg/dL (0.6-1.0); GLOMERULAR FILTRATION RATE > 60; GLUCOSE 74 mg/dL (70-100); HIGH DENSITY LIPOPROTEIN 50 mg/dL (40-85); LDL/HDL RATIO 1.08 RATIO (1.00-3.22); LOW DENSITY LIPOPROTEIN 54 mg/dL (80-100); NON-HIGH DENSITY LIPOPROTEIN 70 mg/dL (90-129); POTASSIUM 4.4 mEq/L (3.5-5.2); SODIUM 133 mEq/L (134-144); TOTAL PROTEIN 5.9 g/dL (6.3-8.2); TRIGLYCERIDE 84 mg/dL (35-135); VERY LOW DENSITY LIPOPROTEINS 16 mg/dL (8-25)
[2017-04-18] MEDS ORDERED: BISACODYL 5 MG EC TAB PO PRN (09:27)
--- NOTE | 2017-04-18 10:56 | SOAPPROG ---
SOAP Progress Note Assessment/Plan: Assessment: 81 yo F hospitalized 04/02/17 for R cerebellar CVA with symptoms beginning several days earlier. She has mild right-sided weakness and is showing some right-sided cerebellar signs. 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 Initial FIM 85 as of 04/09/17, improved to 97 as of 04/16/2017. Walking > 150 feet with front wheeled walker and standby assist; wants to transition to cane but not ready. Climbed and descended 9 stairs with 1 rail. Requires SBA for ADLs. LOB occ with reaching or turning. R hand functional but impairment to handwriting. Collier balance 25/56 on 04/12/17. Independent in room as of . Continue physical and occupational therapy to optimize her mobility and activities of daily living. * Cognitive impairment. Issues with word retrieval, speed of processing, new learning improving; working on higher level cognitive functions as of 2016. Continue Speech and Language Pathology. * Diplopia. With R eye exotropia, consistent with cerebellar lesion; occurs with turning. D/W Neurologist Dr. Juarez: On his recommendation ordered head CTA 04/12/17, which was unchanged from prior imaging from [facility]. Mild proptosis was noted on the CT scan. * Secondary prevention of cerebrovascular accident. Continue aspirin, continue blood pressure control. Ezetimibe was started in the hospital. Initiated rosuvastatin 5 mg QD beginning 04/06/17. Labs 04/18/2017 with minimal transaminase elevation and much improved lipid panel, with total cholesterol 120 and LDL 54. * Hyponatremia, Likely due to chlorthalidone, last dose 04/09/17. Osmolalities urine and serum c/w SIADH. Initiate fluid restriction 1500 cc/day. Improved to 128 on labs 04/12/17 and to 130 on 04/13/17 Continues gradual improvement; Na 131 on 04/16/17; 133 on 04/18/2017. * Hypertension. Also orthostatic hypotension cristin after meals. Overall adequate control except occasional systolic excursions in the evening. Increase hydralazine from 50 mg Q 14 271628 to 75 mg Q 14 102,100 starting 2016; D/C'd AM dose starting 04/13/17 due to hypotension and orthostasis in the morning. Continue lisinopril 20 mg BID . Increase nebivolol from 10 mg Q 1400 to 20 mg on 04/17/2017. Had hyponatremia with chlorthalidone, h/o edema with amlodipine. Consider amiloride of spironolactone; would need close attention to Na and K. * Chronic pain syndrome. Continue oxycodone continuous release. Separate acetaminophen from opiate starting 04/06/2017, with acetaminophen 650 mg q.4 hours p.r.n. and oxycodone 5-10 mg q.3 hours p.r.n. added p.r.n. Fioricet for headache. Pain improved last night and this morning 04/07/2017. Gabapentin is to help sleep and for fibromyalgia. 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 Chronic/stable conditions: * Constipation. She reports better results at home with bisacodyl oral. We will change senna to p.r.n. and initiate physical oral 5 mg q.day. She discussed history of a bowel obstruction and concern that this may be developing now. Encouraged use of enema or suppository today 04/09/17; she reports that she will accept a suppository today. * Hypothyroidism. Continue levothyroxine. * Congestive heart failure, diastolic, grade 2. Continue nebivolol and lisinopril. Continue oxygen. Has reduced oxygen requirement but lower extremity edema is noted. Initiate daily weights starting 04/09/2017. * Likely obstructive sleep apnea. Listed in her med medical history, however, she has not been on specific treatment for this other than oxygen at night. Advise a sleep study after discharge from inpatient rehabilitation and continue oxygen. * Anxiety versus depression. Will continue citalopram and clonazepam. Consider discussion with the patient regarding effects of clonazepam on balance. * Vitamin D deficiency. Continue cholecalciferol. * Gastroesophageal reflux disorder. Continue pantoprazole, especially with the recent re-initiation of aspirin. Lives in basement level room in son's home with stair glide however has several stairs to enter the house. 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 Discharge 04/19/2017 to son's home. FOLLOW UP: After discharge, she should follow up with primary care and with [facility], Dr. Lacy, or his colleagues in their outpatient clinic. 04/18/17 10:51 Subjective: No complaints this morning. Ready to go home tomorrow. Denies fevers, chills, cough, dyspnea. Not experiencing lightheadedness or dizziness. Objective: Vital Signs Temp Pulse Resp BP Pulse Ox 36.6 C 52 L 16 145/64 H 95 04/18/17 07:20 04/18/17 07:20 04/18/17 07:20 04/18/17 08:09 04/18/17 07:20 Laboratory Results 04/18/17 06:00 04/17/17 04/18/17 04/19/17 05:59 05:59 05:59 Intake Total 1750 1478 120 Output Total 1675 Balance 75 1478 120 Physical Exam - Physical Exam General Appearance: WD/WN, alert, no apparent distress Respiratory: normal breath sounds, No crackles, No rhonchi, No wheezing Cardiac/Chest: regular rate, rhythm, edema (trace B pretibial) Skin: normal color, warm/dry Neuro/Psych: no motor/sensory deficits, alert, normal mood/affect, oriented x 3 ICD10 Worksheet Patient Problems: Problems Problem Status Onset Cerebellar stroke Acute
[2017-04-18] MEDS: NEBIVOLOL HCL 5 MG TAB PO SCH (14:32)
[2017-04-18] MEDS: ACETAMINOPHEN 325 MG TAB PO PRN (14:57)
[2017-04-18] MEDS: oxyCODONE IR 5 MG TAB PO PRN ×2 (14:57→19:08)
[2017-04-18] MEDS: CITALOPRAM 20 MG TAB PO SCH (20:15)
[2017-04-18] MEDS: GABAPENTIN 300 MG CAP PO SCH (20:15)
[2017-04-18] MEDS: clonazePAM 1 MG TAB PO SCH (20:17)
[2017-04-19 05:19] VITALS: PULSE 58; RESP 18; O2SAT 92
[2017-04-19] MEDS: LEVOTHYROXINE 75 MCG TAB PO SCH (05:19)
[2017-04-19 08:02] VITALS: BP 134/91
[2017-04-19] MEDS: LISINOPRIL 20 MG TAB PO SCH (08:04)
[2017-04-19] MEDS: PANTOPRAZOLE SODIUM 40 MG TAB PO SCH (08:04)
[2017-04-19] MEDS: ROSUVASTATIN CALCIUM 10 MG TAB PO SCH (08:04)
[2017-04-19] MEDS: ASPIRIN 81 MG CHEWABLE TAB PO SCH (08:04)
[2017-04-19] MEDS: CHOLECALCIFEROL VIT D3 1,000 UNITS TAB PO SCH (08:04)
[2017-04-19] MEDS: OMEGA-3 FATTY ACIDS 1,000 MG CAP PO SCH (08:04)
[2017-04-19] MEDS: EZETIMIBE 10 MG TAB PO SCH (08:04)
--- NOTE | 2017-04-19 15:32 | PDOREHIP ---
Admission [facility] - Admission - 3 Day Assessment Period Admission Date/Day 1: 04/05/17 Day 2: 04/06/17 Day 3: 04/07/17 - Skin Conditions Unhealed Pressure Ulcer (1 or more/Stage 1 or >)-Admission: 0. No Discharge [facility] - Discharge - 3 Day Assessment Period 2 Days Prior to Anticipated Discharge Date: 04/17/17 1 Day Prior to Anticipated Discharge Date: 04/18/17 Anticipated Discharge Date: 04/19/17 - Discharge Skin Conditions Unhealed Pressure Ulcer (1 or more/Stage 1 or >)-Discharge: 0. No
--- NOTE | 2017-04-19 16:51 | GDS ---
[f rep st] DISCHARGE SUMMARY DISCHARGE DIAGNOSIS: Right cerebellar cerebrovascular accident. DISCHARGE DIAGNOSES: Right cerebellar cerebrovascular accident, hypertension, and congestive heart failure. CONSULTATIONS: There were none. PROCEDURES: There were none. COMPLICATIONS: There were none. HISTORY/HOSPITAL COURSE: This patient was admitted from [facility]. She had suffered a right cerebellar stroke. Symptoms had evolved over a period of days, so she was not a candidate for thrombolytics or other interventions. In the hospital, an echocardiogram was done, which showed grade 2 diastolic dysfunction. She was begun on ezetimibe for dyslipidemia. She had had prior intolerance to statin medications. She participated in physical and occupational therapies, and speech and language pathology, and was ready for inpatient rehabilitation. She did well in the inpatient rehabilitation. Initially, she had difficulty with balance and nonvertiginous sensation of movement, but this improved. Meclizine had been ordered in the hospital and was continued, but it had little effect. She had considerable improvement in her functional independence measure , from 85 as of 04/09/2017, to 97 as of 04/16/2017; both scores are consistnet with Assisted Living level of function.. She continued to improve, and was made independent in her room on 04/17/2017. She was walking more than 150 feet with a front-wheeled walker. She climbed and descended 9 stairs using 1 rail. She required only standby assist for activities of daily living. She has occasional loss of balance with reaching or turning. She had great improvement in her right hand in terms of function, but continued to have impairments to handwriting. Cognitive impairment initially manifested with issues with word retrieval, speed of processing, and new learning. These improved and she was working on higher level cognitive functions with Speech and Language Pathology. She had diplopia early in her stay. Eventually it was only happening when she would turn. A CT angiogram was done after discussion of diplopia with neurologist, Dr. Juarez, and there was no change relative to the imaging that was done at [facility]. Dyslipidemia was severe with a cholesterol of 285 when measured in the hospital. As ezetimibe was unlikely to lower cholesterol by more than about 17% , rosuvastatin was begun and she tolerated it well. There was no significant elevation in liver enzymes. She had marked improvement in her total cholesterol , reduced to 120 and her LDL was 54. Hypertension was difficult to control. She also had orthostatic hypotension, especially after meals. Medications were adjusted with 40 mg of lisinopril that she was taking on admission split up into 20 mg b.i.d. She had hydralazine 50 mg q.h.s., this was increased to 50 mg 3 times daily, however, she had orthostatic hypotension in the morning especially after breakfast so it was changed to b.i.d. at midday and in the evening, and eventually was increased from 50 mg to 75 mg. Blood pressure was still often higher than target for secondary stroke prevention. On the morning of discharge, her blood pressure was 152/91 but after taking her medications, it improved to 134/91. Advise continued monitoring of her blood pressure. If it remains high, consider beginning a diuretic. However, she had hyponatremia when she was started on chlorthalidone, so would avoid thiazide diuretics. Congestive heart failure, diastolic grade 2: She was on oxygen 24 hours when she came in. She was treated with adjustment of her blood pressure medications and with incentive spirometry, and became liberated of oxygen during the day. She did use oxygen overnight. There was report of a history of sleep apnea but she has never been on CPAP. She can pursue this further as an outpatient with her primary care doctor. PHYSICAL EXAM: On the day of discharge: VITAL SIGNS: Blood pressure was 134/ 91, heart rate was 58, respiratory rate was 18, oxygen saturation was 92% on room air. Temperature was 36.6 degrees centigrade. GENERAL: This is a well- nourished, well-developed, obese woman sitting up on the edge of bed, cooperative, and in no acute distress. HEART: There is a regular rate and rhythm with a 2/6 systolic murmur at the left sternal border. LUNGS: Clear to auscultation bilaterally. ABDOMEN: Soft, nontender, nondistended with normoactive bowel sounds. NEUROLOGIC: She is alert and oriented x3. Cranial nerves 2-12 are grossly intact. There is no focal weakness. Sensation is intact to light touch. She has mild ataxia of the right hand with large, irregular hand writing which, however, is legible. DISCHARGE PLAN: 1. Condition upon discharge is good. 2. Activity is ad allison, though she uses a front-wheeled walker for ambulation. 3. Diet: Regular. 4. Date of next appointment: She is to follow up with her new primary care provider, KARLOS Shah, on April 24 at 2 p.m., and she is to follow up with Dr. Herson aLcy, neurologist, within 2 weeks. MEDICATIONS AT DISCHARGE: 1. Acetaminophen 650 mg p.o. q.4 hours p.r.n. 2. Hydralazine 75 mg p.o. at 1400 and 2100. 3. Lisinopril 20 mg p.o. twice daily. 4. Oxycodone immediate release 5-10 mg p.o. q.3 hours p.r.n. 5. Polyethylene glycol 17 g p.o. daily p.r.n. 6. Rosuvastatin 5 mg p.o. daily. 7. Senna 1-2 tabs p.o. twice daily p.r.n. 8. Milroy-3 fatty acids 1000 mg p.o. daily. 9. Aspirin 81 mg p.o. daily. 10. Cholecalciferol 3000 units p.o. twice daily. 11. Citalopram 40 mg p.o. at bedtime. 12. Clonazepam 1 mg p.o. at bedtime. 13. Ezetimibe 10 mg p.o. daily. 14. Gabapentin 600 mg p.o. at bedtime. 15. Levothyroxine 75 mcg p.o. daily. 16. Nebivolol 20 mg p.o. daily. 17. Oxycodone continuous release 20 mg p.o. q.12 hours. 18. Pantoprazole 40 mg p.o. daily. ISSUES TO BE ADDRESSED AT FOLLOWUP: 1. Hypertension. If blood pressure is not at target, below 140/90 consistently , consider initiation of a diuretic though not a thiazide type due to hyponatremia on chlorthalidone. 2. Functional status: Status post CVA. She will continue therapies at home to optimize her functional status, and she can follow up with her primary care provider about this. 3. Chronic pain syndrome. Continue the oxycodone continuous release and immediate release as well as the gabapentin. 4. Congestive heart failure, diastolic, grade 2. She is using oxygen at night. She can follow up with her primary care provider. 5. Possible obstructive sleep apnea. It would be in her best interest to have a sleep study done as an outpatient, and this can be ordered per primary care. 6. Obesity and deconditioning. Increased exercise was discussed with the patient. She was encouraged to increase her activities beyond the goals that physical and occupational therapy would have with her. She can follow up with Primary Care regarding exercise, diet and weight loss. More than 30 minutes were spent on this discharge process including coordination of care, medication reconciliation. Copy requested to: KARLOS Ramirez /[id number]/MODL [id number]
== END 2017-04-19 11:18 | disposition home health service (06) | DRG 57 ==
LOC: BREH 16:31
PROVIDERS: ADMIT Internal Medicine; ATTEND Internal Medicine
PROC: F0636ZZ Communicative/Cognitive Integration Skills Treatment of Neurological System - Whole Body (ICD-10-PCS; principal; 2017-04-05)
PROC: F07M3ZZ Motor Function Treatment of Musculoskeletal System - Whole Body (ICD-10-PCS; principal; 2017-04-05)
PROC: F08Z7ZZ Vocational Activities and Functional Community or Work Reintegration Skills Treatment (ICD-10-PCS; principal; 2017-04-05)
DX: I69.998 Other sequelae following unspecified cerebrovascular disease (principal); R26.81 Unsteadiness on feet; I69.918 Other symptoms and signs involving cognitive functions following unspecified cerebrovascular disease; G31.84 Mild cognitive impairment of uncertain or unknown etiology; H53.2 Diplopia; G89.29 Other chronic pain; E66.01 Morbid (severe) obesity due to excess calories; Z68.33 Body mass index [BMI] 33.0-33.9, adult; M19.90 Unspecified osteoarthritis, unspecified site; M79.7 Fibromyalgia; G47.33 Obstructive sleep apnea (adult) (pediatric); I50.30 Unspecified diastolic (congestive) heart failure; K59.00 Constipation, unspecified; K21.9 Gastro-esophageal reflux disease without esophagitis; E78.5 Hyperlipidemia, unspecified; E03.9 Hypothyroidism, unspecified; H35.30 Unspecified macular degeneration; I10 Essential (primary) hypertension; E55.9 Vitamin D deficiency, unspecified; I73.9 Peripheral vascular disease, unspecified; I65.29 Occlusion and stenosis of unspecified carotid artery; Z98.1 Arthrodesis status; Z66 Do not resuscitate; Z87.01 Personal history of pneumonia (recurrent); Z87.442 Personal history of urinary calculi
CPT/HCPCS: 92507-GN; 92522-GN; 97110-GO; 97110-GP; 97112-GP; 97116-GP; 97162-GP; 97166-GO; 97530-GO; 97530-GP; 97532-GO; 97535-GO; 99366-GO; J1650; Q9967